=== PATIENT | male | born 1950 | race Caucasian/White ===

== ENCOUNTER 2018-06-30 13:10 | Inpatient (IN) ==
--- NOTE | 2018-06-30 13:48 | Diag Imaging Result Doc PS360 ---
EXAM: CHEST-PORTABLE HISTORY: SOB TECHNIQUE: Chest single view COMPARISON: 05/04/2018 FINDINGS: The lungs are well expanded. The heart is not enlarged. Mild vascular distention. There are no infiltrates. No effusion identified. IMPRESSION: Mild pulmonary edema Electronically signed by Jostin Santos 06/30/2018 1:46 PM
[2018-06-30 14:54] LABS: URINE SOURCE CATH
[2018-06-30] MEDS ORDERED: DILAUDID IV ONE (14:57)
[2018-06-30 14:59] LABS: BASO# 0.03 X1000 (0.0-0.2); BASO% 0.2 % (0.0-0.8); HEMOGLOBIN 11.6 g/dL (14.0-18.0); IMM GRAN# 0.08 X1000 (0.0-0.04); IMM GRAN% 0.6 % (0.0-0.5); LYMPH# 1.72 X1000 (1.2-3.4); MCH 28.3 PG (27-31); MCHC 31.4 g/dL (33-37); MCV 90.2 FL (81-99); MONO# 0.87 X1000 (0.11-0.59); MONO% 6.1 % (1.7-9.3); MPV 10.1 FL (7.4-10.4); NEUT# 11.67 X1000 (1.4-6.5); NEUT% 81.1 % (42.2-75.2); PLT 400 X1000 (130-400); RDW 17.2 % (11.5-14.5); WBC 14.37 X1000 (4.8-10.8)
--- NOTE | 2018-06-30 15:00 | PROVIDER DOCUMENTATION ---
HPI-General Adult - General Stated Complaint: LEG PAIN Time Seen by Provider: 06/30/18 13:31 Source: patient, family Allergies/Adverse Reactions: Patient Allergies Allergy/AdvReac Type Severity Reaction Status Date / Time morphine AdvReac Unknown Verified 06/30/18 14:42 Home Medications: Home Medication List Medication Instructions Recorded Confirmed Last Taken Type Albuterol Sulfate [Proair Hfa] 8.5 gm IH PRN PRN 11/15/17 06/30/18 06/30/18 09: 00 History Aspirin 81 mg PO DAILY 11/15/17 06/30/18 06/30/18 09:00 History Cyclobenzaprine [Flexeril] 10 mg PO PRN PRN 11/15/17 06/30/18 11/17/17 History Duloxetine [Cymbalta] 60 mg PO BID 11/15/17 06/30/18 06/30/18 09:00 History Hydrochlorothiazide 25 mg PO PRN PRN 11/15/17 06/30/18 11/17/17 History Hydrocodone/Acetaminophen [[place] 1 each PO PRN PRN 11/15/17 06/30/18 11/16/17 History 7.5-325 Tablet] Niacin E.r. [Niaspan] 500 mg PO DAILY 11/15/17 06/30/18 06/30/18 09:00 History Omeprazole 20 mg PO DAILY 11/15/17 06/30/18 06/30/18 09:00 History Rosuvastatin Calcium [Crestor] 5 mg PO DAILY 11/15/17 06/30/18 06/30/18 09:00 History Umeclidinium Brm/Vilanterol Tr 1 each IH DAILY 11/15/17 06/30/18 06/30/18 09:00 History [Anoro Ellipta 62.5-25 Mcg INH] Zolpidem [Ambien] 5 mg PO QHS 11/15/17 06/30/18 06/29/18 21:00 History Apixaban [Eliquis] 5 mg PO DAILY 06/30/18 06/30/18 06/30/18 09:00 History - History of Present Illness -Gen Adult Nature of Presenting Problems: 68 YEAR OLD MALE WITH MEDICAL HISTORY SIGNIFICANT FOR PERIPHERAL VASCULAR DISEASE DUE TO SMOKING (NOT DIABETIC) BROUGHT IN TODAY WITH CONCERN OF LEFT LOWER EXTREMITY PAIN. BOTH AND PATIENT ARE POOR HISTORIAN. ACCORDING TO THE , PATIENT WAS PREVIOUSLY ON COUMADIN FOR VTE BUT WAS RECENTLY ADMITTED TO THE [facility] FOR BACK SURGERY AND WHILE IN HOSPITAL, WAS ON HEPARIN DRIP. AFTER DISCHARGED FROM THE HOSPITAL, PATIENT COMPLAINED OF LEFT LOWER EXTREMITY PAIN AND RETURNED BACK TO THE HOSPITAL THE NEXT DAY AND FOUND TO HAVE DVT. ACCORDING THE , PATIENT WAS DISCHARGED TO [facility] AND IS NOT SURE IF PATIENT IS ON ANY ANTICOAGULANT OR NOT. LOOKING AT [facility] PAPER, PATIENT SHOULD BE ON ELIQUIS 5MG BID WITH START DATE OF 06/29/18 Review of Systems - Adult - REVIEW OF SYSTEMS - ADULT Constitutional: denies: chills, fever, fatique Eyes: reports: double vision. denies: discharge, blurred vision Ears, Nose, Mouth & Throat: reports: no symptoms reported Cardiovascular: reports: no symptoms reported Respiratory: reports: shortness of breath Gastrointestinal: reports: no symptoms reported Genitourinary: reports: no symptoms reported Musculoskeletal: reports: other (LOWER LOWER EXTREMITY PAIN) Integumentary: reports: no symptoms reported Neurological: reports: no symptoms reported Psychiatric: reports: no symptoms reported Endocrine: reports: no symptoms reported Hematologic/Lymphatic: reports: no symptoms reported Allergic/Immunologic: reports: no symptoms reported Past History - Adult - PAST MEDICAL HISTORY-ADULT Review of Records: reports: Old Records Reviewed Physical Exam-General - PHYSICAL EXAM-ADULT Initial Vital Signs Reviewed: Yes - CONSTITUTIONAL General Appearance: appears well, alert, mild distress - EYES Eyes: PERRL/EOMI - HEAD, EARS, NOSE, MOUTH & THROAT HENMT: normocephalic/atraumatic, moist mucous membranes - NECK Neck: non-tender, full range of motion - RESPIRATORY Respiratory: chest non-tender, lungs clear, no pleuratic chest pain, no respiratory distress, no accessory muscle use, decreased breath sounds - CARDIOVASCULAR Cardiovascular: normal peripheral pulses, regular rate, rhythm, no edema - GASTROINTESTINAL (ABDOMEN) Abdominal Exam: normal bowel sounds, non tender, soft - LYMPHATIC Lymphatic: no adenopathy - MUSCULOSKELETAL Back Exam: normal inspection Extremity: swelling (LEFT LOWER EXTREMITY SWELLING AND COLD TO TOUCH.), other - SKIN Integumentary: normal color, normal turgor, other (PATIENT HAVE AN ABSCESS LIKE LOOKING AT LEFT GROIN THAT'S ABOUT 8 CM LONG) - NEUROLOGIC Neurologic: grossly normal - PSYCHIATRIC Psych/Mental Status: normal mood/affect, normal thought content, normal thought process, oriented x 3 Progress - PLAN OF CARE/RESULTS Progress/Plan/Lab Results: Laboratory Results - last 24 hr 06/30/18 14:28 Urine Source CATH Orders Category Date Time Status CHEST-PORTABLE [RAD] Stat Exams 06/30/18 13:31 Completed ABSCESS CULTURE INC GRAM STAIN [RM] Stat Lab 06/30/18 14:01 Uncollected AMYLASE [CHEM] Stat Lab 06/30/18 14:28 Received CBC WITH ELECTRONIC DIFF [HEME] Stat Lab 06/30/18 14:28 Results COMPREHENSIVE METABOLIC PANEL [CHEM] Stat Lab 06/30/18 14:28 Received LIPASE [CHEM] Stat Lab 06/30/18 14:28 Received PROTIME WITH INR [COAG] Stat Lab 06/30/18 14:28 Received PTT [COAG] Stat Lab 06/30/18 14:28 Received TROPONIN T Stat Lab 06/30/18 14:28 Received URINALYSIS W/POSS RFLX CULT [URINALYSIS] Stat Lab 06/30/18 14:28 Results pro-bnp [PRO B-NATRIURETIC PEPTIDE] Stat Lab 06/30/18 14:28 Received Hydromorphone [Dilaudid] Med 06/30/18 14:57 Once 1 mg IV NOW ONE Venous U/S Bilateral Legs Stat Ther 06/30/18 14:02 Ordered Result Diagrams: 06/30/18 14:28 06/30/18 14:28 - REASSESSMENT Reassessment #1 Time Reassessed: 15:12 Status: other (SPOKE TO HOSPITLIAST WHO WILL ADMIT PATIENT FOR DVT/PE; WILL TALK TO SURGEON REGARDING TO ABSCESS.) Reassessment #2 Time Reassessed: 15:17 Status: other (UA BACK AND REVEALING UTI. WILL HAVE RN CHANGE THE FORD AND I WILL START PATIENT ON CEFTRIAXONE.) Reassessment #3 Time Reassessed: 15:27 Status: other (SPOKE TO DR. HARRIS AND APPRECIATE HIS ASSITANCE. DR. HARRIS WILL SEE PATIENT DURING HIS HOSPITAL STAY.) - XRAY 1 XRAY Study: Chest ([facility] [address], [address], [place] [address] Department of Imaging Patient: BENEDICTO WHIPPLEADM Date: 06/30/18#: [id number] : 1950DM Status: PRE ERAcct#: [id number] Age /Sex: 68/MRoom/Bed: Loc: ED Ordering Physician: Carmen Sanford MD Family Physician: Reason for Procedure: SOB Signed EXAM: CHEST- PORTABLE HISTORY: SOB TECHNIQUE: Chest single view COMPARISON: 2017 FINDINGS: The lungs are well expanded. The heart is not enlarged. Mild vascular distention. There are no infiltrates. No effusion identified. IMPRESSION: Mild pulmonary edema Electronically signed by Jostin Santos 06/30/2018 1:46 PM 06/30/18 1346 Interpreting Physician: Jostin Santos MD Dictated Date/Time: 06/30/18 1345 cc: Carmen Sanford MD;) Departure - Departure Date of Disposition Decision: 06/30/18 Time of Disposition Decision: 15:27 DIAGNOSIS: Metabolic encephalopathy, Urinary tract infection, Abscess of groin, left, DVT (deep venous thrombosis) Disposition: ADMITTED INPATIENT 09 Certified Medical Emergency: Emergent Condition: Fair Referrals and Follow-Ups: Zbigniew Bartlett [Primary Care Provider] - - Critical Care Note This patient required my direct & personal management of CC.: No Attestation - Physician/ JASIEL Attestation Patient care was provided by Advanced Practice Provider:: No The physician spent face to face time with patient:: Yes Advanced Practice Provider documentation review:: Supervising physician onsite and consulted in the evaluation and care of this patient. The physician did have a face to face encounter with the patient.
[2018-06-30 15:05] LABS: INR 1.44; PROTIME 18.7 Seconds (11.0-16.0)
[2018-06-30 15:06] LABS: PTT 40.6 Seconds (22.3-41.8)
[2018-06-30 15:07] LABS: BILIRUBIN URINE MODERATE (NEGATIVE); BLOOD URINE MODERATE (NEGATIVE); COLOR YELLOW; GLUCOSE URINE NEGATIVE (NEGATIVE); KETONE URINE 40 mg/dL (NEGATIVE); LEUKOCYTES URINE LARGE (NEGATIVE); NITRITE URINE POSITIVE (NEGATIVE); PH URINE 6.5; PROTEIN URINE 100 mg/dL (NEGATIVE); SP GRAVITY URINE 1.027; TURBIDITY URINE TURBID (CLEAR); UR EPITHELIAL CELLS <10 /HPF (<10); URINE BACTERIA 2+ /HPF; URINE RBC TNTC /HPF (<10); URINE WBC TNTC /HPF (<10); UROBILINOGEN URINE 12 mg/dL (NORMAL)
[2018-06-30] MEDS ORDERED: ROCEPHIN 2 GM in NS 50 ML IV ONE (15:15)
[2018-06-30 15:22] LABS: AGAP 15; ALB/GLOB RATIO 0.5; ALBUMIN 1.9 g/dL (3.5-5.0); ALKALINE PHOSPHATASE 286 U/L (32-122); AMYLASE 27 U/L (20-200); BUN 16 mg/dL (8-22); CALCIUM 7.7 mg/dL (8.8-10.2); CHLORIDE 97 mmol/L (98-107); COSMO 287; CREATININE 0.5 mg/dL (0.7-1.2); ESTIMATED GFR > 60; GLUCOSE 105 mg/dL (70-104); GOT 49 U/L (10-34); GPT 39 U/L (10-44); LIPASE 29 U/L (13-60); POTASSIUM 3.6 mmol/L (3.5-5.1); SODIUM 143 mmol/L (136-145); TCO2 31 mmol/L (25-35); TOTAL BILIRUBIN 3.94 mg/dL (0.20-1.00); TOTAL PROTEIN 5.4 g/dL (6.3-8.3)
[2018-06-30 15:42] LABS: URINE CASTS NONE SEEN; URINE CRYSTALS NONE SEEN; URINE YEAST NONE SEEN
[2018-06-30] MEDS ORDERED: ZOSYN 3.375 GM in NS 50 ML IV ONE (15:44)
[2018-06-30] MEDS ORDERED: VANCOMYCIN IV PER PHARMACY MISC SCH (15:45)
[2018-06-30 15:48] LABS: ALLEN TEST YES; BE 8.2 mmoll (-3.0-3.0); BLOOD TYPE ARTERIAL; HCO3-(ACT) 31.1 mmoll (20.0-26.0); METHB 1.1 % (0.0-1.5); O2(CT) 13.2 mL/dL (15.0-23.0); PCO2(98.6) 40 mmHg (35-45); PO2(98.6) 51 mmHg (60-100); SAMPLE BLOOD; SAO2 91.3 % (95.0-100.0); THB 10.7 g/dL (11.5-17.4); pH(98.6) 7.51 (7.35-7.45)
[2018-06-30 15:49] LABS: MODALITY CANNULA
[2018-06-30 15:50] LABS: O2HB 87.4 % (95.0-99.0)
[2018-06-30] MEDS ORDERED: VENTOLIN HFA INH PRN (15:51)
[2018-06-30] MEDS ORDERED: NORCO-7.5 PO PRN ×2 (15:51→17:34)
[2018-06-30] MEDS: PROTONIX IV SCH (16:00)
[2018-06-30] MEDS ORDERED: LASIX IV SCH (17:30)
[2018-06-30] MEDS ORDERED: MORPHINE IV PRN (17:30)
--- NOTE | 2018-06-30 17:46 | ED EKG INTERP ---
This chart was entered by Rani King Scribe, acting as scribe for Romulo Cervantes MD. EKG Interpretation - EKG Time of EKG reading by physician:: 16:21 EKG Read and Signed by:: Romulo Cervantes EKG Interpretation (*Must complete 3 of following elements*): Abnormal Rate: 101 Rhythm: Sinus tachycardia w/premature atrial complexes Comments: nonspecific ST abnormality Attestation - Physician/ JASIEL Attestation Patient care was provided by Advanced Practice Provider:: Yes Advanced Practice Provider documentation review:: The Mid-level provider documentation, treatment plan and medical decision making was reviewed by the physician who agrees with all treatment and medical decision making by the MLP. The physician spent face to face time with patient:: No Advanced Practice Provider documentation review:: Supervising physician onsite and consulted in the evaluation and care of this patient. The physician did not have a face to face encounter with the patient. This chart was documented by the indicated scribe, (Rani King Scribe) and accurately reflects the services I performed and decisions made by me, Romulo Cervantes MD, as attested by the provider's signature.
--- NOTE | 2018-06-30 18:22 | Diag Imaging Result Doc PS360 ---
EXAM: CT ABD/PELVIS W/PO AND IV CON HISTORY: inguinal abscess TECHNIQUE: CT abdomen and pelvis with intravenous contrast COMPARISON: None. FINDINGS: There are small pleural effusions measuring under 2 cm posteriorly and inferiorly in the midline with basilar atelectasis and/or infiltrates. There are several stones within the gallbladder. No inflammation about the gallbladder. There is a 3.5 cm nonspecific hypodense lesion superiorly in the right lobe of the liver. There is an additional 9 mm hypoechoic nodule inferiorly in the right lobe. Normal spleen, pancreas, and adrenal glands. No solid renal mass. There is scarring to the right kidney. Mild decreased enhancement in the mid left kidney with no distinct lesion. No aortic aneurysm. There is an inferior vena caval filter. No bowel obstruction. Mixed density areas in the left iliopsoas region extending into the inguinal region and upper thigh. No air within this area. Poorly defined periphery. This extends to the skin surface in the iliac region. The left external iliac artery is occluded. There is flow in the distal femoral and proximal superficial femoral arteries. There is a Sutherland catheter in the urinary bladder. The prostate is not enlarged. Prominent seminal vesicles. The postsurgical changes in the lower lumbar spine. IMPRESSION: 1.Large mixed density area in the upper left thigh extending into the iliopsoas region with an appearance more typical of a hematoma. 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 There is an inferior vena caval filter. 3.Nonspecific hypodense lesions within the liver 4.Cholelithiasis 5.Nonspecific poorly enhancing area in the mid left kidney as well as scarring to the right kidney 6.Small pleural effusions with basilar atelectasis and/or infiltrates This exam was performed using automated exposure control, adjustment of mA or kV according to patient size, and/or use of iterative reconstruction technique. Electronically signed by Jostin Santos 06/30/2018 6:19 PM
--- NOTE | 2018-06-30 18:29 | HISTORY AND PHYSICAL ---
DATE OF CONSULTATION: 06/30/2018 CHIEF COMPLAINT: Was shortness of breath and left groin pain. Briefly this is 68-year-old male. He was seen by ER physician today. He has recently been discharged from [facility] after a protracted admission for DVT, although it is unclear how long he has been out, but again since it was about 3 or 4 days he has had it about 3 days and it is unclear if he had it at the time of discharge from [facility]. They are not very good historians but it sounds like within the last couple weeks he had back surgery electively, that was fine then he came back in for a DVT of his left leg. He had an IVC filter placed, I am unclear a little bit why that was the case but then describes that he had a hematoma either in his left lower quadrant or associated with his hip and I think could not be anticoagulated. His anticoagulate was due to be started on the . It does sound like he also had a PE. In any case, he has a left groin abscess which has been there for 3 days. Unclear where the site of IVC filter placement was. I do not have those records. The family is very adamant about not returning to [place] despite being there for the last several weeks and getting most their care there. Dr. Bartlett has operated on him and did a carotid endarterectomy earlier this year in November. He has seen Dr. Pace in the past who did a femoral-popliteal bypass and had a hematoma that I think had to be evacuated but that was in 2007. In any case, I discussed with the family that we need to get further imaging and evaluate his graft is infected before we decide whether to keep him here and that is also at discretion of Dr. Foley and Dr. Bartlett as they were not involved with this vascular procedure that has been done recently. It is unclear whether this was related to the IVC filter or not or if this just happened spontaneously. In any case we will get Dr. Foley to evaluate and CT scan of his abdomen and pelvis and evaluate the deepness of infection and patency of his grafts. Fortunately, his creatinine is intact. PAST MEDICAL HISTORY: 1. CAD. 2. Hyperlipidemia. He is not a diabetic. I think his initial indication for anticoagulant was either vascular disease or atrial fibrillation. PAST SURGICAL HISTORY: 1. He has IVC filter. 2. Appendectomy. 3. Tonsillectomy. 4. Carotid endarterectomy. SOCIAL HISTORY: Heavy smoker 3 to 4 packs for at least 25 years. No alcohol. ALLERGIES: To morphine. FAMILY HISTORY: Significant for CAD, other vascular disease . MEDICATIONS: He is taking Ambien, ProAir, Eliquis although it is listed as 5 daily and it was started yesterday, aspirin 81 daily, Flexeril, Cymbalta 60 b.i.d., hydrochlorothiazide p.r.n., Percocet p.r.n., niacin 500 daily, omeprazole 20 daily, Crestor 5 daily and Anoro Ellipta. REVIEW OF SYSTEMS: Otherwise negative times a 10 point review of systems. PHYSICAL EXAMINATION: Vital Signs: Blood pressure is 141/71, heart rate 101, respiratory 24. He is about 93-94% on 3 or 4 L. General: Well-developed male appears in mild distress secondary to pain. HEENT: Pupils equal, round, reactive to light. Extraocular movements were intact. Moist mucous membranes. Neck: Supple. Cardiovascular: Regular rate and rhythm. Pulmonary: Bilateral breath sounds clear to auscultation with some wheezing and rales. GI : Was soft, nontender, nondistended. Bowel sounds are positive. Extremities: No clubbing or cyanosis. Lymphatic: No peripheral edema. Neurological: Nonfocal. Skin: He had a large I would say 3 to 4 ovoid abscess with active purulent drainage and some serosanguineous fluid removal, there were areas that were almost dark blue, there is a vascular component to it. His left leg is edematous at least 2 to 3+ edema from ankle all the way up to thigh and his skin was jaundiced and he is jaundiced. 1. 68-year-old male with a left groin abscess which is felt to be associated with either primary furunculosis or possibly it could be a endovascular infection related to either graft infection or recent venous puncture and inferior vena cava filter placement. He will be placed on broad-spectrum antibiotics vancomycin and Zosyn until we get more information, which will be CT scan to better evaluate for endovascular infection. If there is not endovascular infection this can be handled here. If there is he will need vascular surgery evaluation and we may not be able to wait till Monday. Dr. Foley will evaluate the patient. 2. Hypoxia may be related to early sepsis possibly versus pulmonary embolism. We will anticoagulate as soon as we know there is not significant infection probably with heparin until we know a little bit better. He has got a large hematoma as well. 3. Elevated liver enzymes, unclear etiology if that is related to medication or otherwise, not really on anything besides Crestor that would be potentially hepatotoxic. We will avoid any hepatotoxic drugs in the meantime. 4. Pulmonary edema. We will order some diuretics and follow. DISPOSITION: Pending his clinical status. Based on CT scan evaluation, patient has a hematoma which he developed while being anticoagulating after a DVT he developed after spinal surgery. He subsequently has been placed on eliquis starting yesterday, he has a large abscess in his inguinal which is associated with iliopsoas hematoma which is now felt to be infected unclear if it is associated with any endovascular graft. Dr Foley has evaluated the patient and feels like he will need IV antibiotics and I/D when clinically more stable. He is also developing progressive respiratory failure, which is unclear as far as etiology. may be developing, ALI or ARDS due to infection, will check echo to evaluate for systolic heart failure, presumably as he has an ivc filter it would be unlikely to be related to PE. We will get pulmonary consult; and continue diuresis; hold anticoagulation as he has IVC filter; as has a large hematoma. cc: MD DAVID Horne
[2018-06-30] MEDS ORDERED: DUONEB (A & A) INH PRN (18:45)
[2018-06-30 19:14] LABS: ALLEN TEST YES; BE 9.1 mmoll (-3.0-3.0); BLOOD TYPE ARTERIAL; HCO3-(ACT) 31.9 mmoll (20.0-26.0); METHB 1.2 % (0.0-1.5); O2(CT) 14.5 mL/dL (15.0-23.0); O2HB 92.6 % (95.0-99.0); PCO2(98.6) 44 mmHg (35-45); PO2(98.6) 70 mmHg (60-100); SAMPLE BLOOD; SAO2 96.6 % (95.0-100.0); THB 11.1 g/dL (11.5-17.4); pH(98.6) 7.49 (7.35-7.45)
[2018-06-30 19:15] LABS: MODALITY VENTIMASK
--- NOTE | 2018-06-30 19:25 | GENERAL SURGERY CONSULTATION ---
DATE: 06/30/2018 REASON FOR CONSULTATION: Left groin abscess. HISTORY OF PRESENT ILLNESS: This is a 68-year-old male known to my partner, Dr. Bartlett for peripheral arterial disease, carotid artery disease and previous aortobifemoral bypass with known occlusion of the left iliac graft. He had been planning elective intervention to revascularize his left lower extremity but elected to pursue some type of back surgery first. This occurred in his lower back in late May in [facility]. He was discharged home a few days after surgery and then returned to the hospital a day or 2 later with significant left leg swelling and pain. He was found to have extensive DVT. He was started on blood thinners. He also developed a hematoma of the left iliopsoas and paraspinal muscles. He underwent right IVC filter placement. He was discharged recently to [facility] on Eliquis. I think he had been there about 2 to 3 days this week and then started having significant left groin pain. It was red and swollen and warm and then today it started draining foul drainage and he then presented to our emergency room. PAST MEDICAL HISTORY: Peripheral arterial disease, occluded left aortofemoral graft, chronic back pain, hyperlipidemia, hypertension, carotid artery disease. PAST SURGICAL HISTORY: 1. Aortobifemoral graft. 2. Repair of aortobifemoral graft. 3. Thrombectomy of aortobifemoral graft. 4. Left carotid endarterectomy. 5. Lower back surgery. 6. IVC filter placement. 7. Bilateral cataract surgery. 8. Tonsillectomy. 9. Appendectomy. ALLERGIES: Morphine. HOME MEDICATIONS: Eliquis taken this morning, Ambien, Crestor, omeprazole, Niaspan, Ellipta, [place], hydrochlorothiazide, Cymbalta, Flexeril, aspirin, ProAir. SOCIAL HISTORY: He is a smoker. Denies alcohol use. FAMILY HISTORY: Positive for stroke, hypertension, breast cancer, heart disease, hypercholesterolemia, colon cancer, alcohol abuse, arthritis, and depression. REVIEW OF SYSTEMS: Ten systems reviewed and negative except as noted above. PHYSICAL EXAMINATION: Vital Signs: Temperature not recorded, pulse 101, respirations 24, blood pressure 141/71, O2 saturation 91%. General: He is an elderly male who is ill-appearing but nontoxic. He looks his stated age. HEENT: Normocephalic, atraumatic. Extraocular muscles intact. Pupils equal, round, reactive to light. Sclerae anicteric. Mucous membranes are dry. Neck: Supple. No thyromegaly. CV: Tachycardic and regular. Respiratory: Bilateral equal breath sounds. No work of breathing. GI: Soft, nontender, nondistended. No organomegaly or mass. Extremities: Both lower legs and feet are cool to touch, but not obviously acutely ischemic. I do not palpate pedal pulses. His left leg has 2 to 3+ pitting edema throughout. Skin: The left groin has a large area of swelling, warmth and redness with open foul drainage that is bloody and purulent. LABORATORY: White cell count 14,000, hemoglobin 11.6, hematocrit 37, platelet count 400,000. INR 1.44, PTT 40. Electrolytes reviewed and notable for total bilirubin 3.9, alkaline phosphatase 286, albumin 1.9, amylase 27, lipase 29. Urinalysis positive for nitrite, blood, leukocytes and bacteria. IMAGING: CT of abdomen and pelvis was done today showing a large mixed density fluid collection in the left upper thigh up to the iliopsoas and paraspinal muscles. It appears to be a hematoma. 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 There is also occlusion of left iliac vein. There is an inferior vena cava filter. There are nonspecific hypodense lesions within the liver. There are gallstones. The mid left kidney is poorly enhancing. There are small pleural effusions and basilar atelectasis or infiltrates. Comparison study of CT on 06/17/2018 also showed this large mixed density fluid collection which was similar in appearance. ASSESSMENT AND PLAN: A 68-year-old male with what appears to be an infected left iliopsoas hematoma also extending up into the groin and now with spontaneous drainage. The etiology is unclear, but he may have had a spontaneous hematoma after being put on blood thinners for deep vein thrombosis that has become secondarily infected. There is some concern for the graft as the hematoma is abutting and surrounding the external iliac limb of the graft. At this point, the best thing to do is put him on vancomycin and Zosyn, follow the culture results and allow the Eliquis to exit his system and we would be planning a drainage of this hematoma in the OR in a couple of days. I will talk to Dr. Bartlett at that time and we will assess the graft at that time. cc: Chepe Foley MD
[2018-06-30] MEDS ORDERED: CYMBALTA PO SCH (21:00)
[2018-06-30] MEDS: ZOSYN 3.375 GM in NS 50 ML IV SCH (21:02)
[2018-06-30] MEDS ORDERED: TYLENOL PO PRN ×2 (21:33→21:47)
[2018-06-30] MEDS ORDERED: SALINE LOCK IV FLUID XX ONE ×2 (21:34→21:44)
[2018-06-30] MEDS: CYMBALTA PO SCH (21:50)
[2018-06-30] MEDS: DILAUDID IV PRN (21:50)
[2018-06-30] MEDS: VANCOMYCIN 2 GM in NS 500 ML IV SCH (21:51)
[2018-06-30] MEDS ORDERED: DUONEB (A & A) INH SCH ×2 (22:00→23:30)
[2018-06-30] MEDS: DUONEB (A & A) INH SCH (22:31)
[2018-07-01] MEDS: DUONEB (A & A) INH SCH ×6 (03:31→23:47)
[2018-07-01] MEDS: ZOSYN 3.375 GM in NS 50 ML IV SCH ×3 (04:42→15:35)
[2018-07-01] MEDS: DILAUDID IV PRN ×5 (04:43→21:08)
[2018-07-01] MEDS ORDERED: LASIX IV ONE (05:30)
[2018-07-01 06:38] LABS: BASO# 0.03 X1000 (0.0-0.2); BASO% 0.3 % (0.0-0.8); EOS# 0.05 X1000 (0.0-0.7); EOS% 0.5 % (0.0-10.0); HEMATOCRIT 32.6 % (42.0-52.0); HEMOGLOBIN 10.2 g/dL (14.0-18.0); IMM GRAN# 0.08 X1000 (0.0-0.04); IMM GRAN% 0.8 % (0.0-0.5); LYMPH# 1.84 X1000 (1.2-3.4); LYMPH% 18.3 % (20.5-51.1); MCH 28.1 PG (27-31); MCHC 31.3 g/dL (33-37); MCV 89.8 FL (81-99); MONO# 0.79 X1000 (0.11-0.59); MONO% 7.8 % (1.7-9.3); MPV 10.1 FL (7.4-10.4); NEUT# 7.28 X1000 (1.4-6.5); NEUT% 72.3 % (42.2-75.2); PLT 375 X1000 (130-400); RBC 3.63 XMIL (4.7-6.1); RDW 17.3 % (11.5-14.5); WBC 10.07 X1000 (4.8-10.8)
[2018-07-01 07:19] LABS: AGAP 16; ALB/GLOB RATIO 0.4; ALBUMIN 1.7 g/dL (3.5-5.0); ALKALINE PHOSPHATASE 259 U/L (32-122); BUN 11 mg/dL (8-22); CALCIUM 7.7 mg/dL (8.8-10.2); CHLORIDE 96 mmol/L (98-107); COSMO 283; CREATININE 0.4 mg/dL (0.7-1.2); ESTIMATED GFR > 60; GLUCOSE 81 mg/dL (70-104); GOT 38 U/L (10-34); GPT 29 U/L (10-44); POTASSIUM 2.7 mmol/L (3.5-5.1); SODIUM 143 mmol/L (136-145); TCO2 31 mmol/L (25-35); TOTAL BILIRUBIN 2.73 mg/dL (0.20-1.00); TOTAL PROTEIN 5.5 g/dL (6.3-8.3)
[2018-07-01] MEDS ORDERED: KLOR-CON PO ONE (07:22)
--- NOTE | 2018-07-01 08:06 | Diag Imaging Result Doc PS360 ---
EXAM: CHEST-PORTABLE - 07/01/2018 HISTORY: SOB TECHNIQUE: Portable chest COMPARISON: 06/30/2018 FINDINGS: There are increased opacities at the bilateral lung bases compared to prior, most prominent on the right. This may relate to infiltrates and/or atelectasis. There is no pleural effusion or pneumothorax identified. Heart size is normal. IMPRESSION: Bibasilar infiltrates/atelectasis, most prominent on the right. Electronically signed by Riley Sweet 07/01/2018 8:03 AM
[2018-07-01] MEDS: CYMBALTA PO SCH ×2 (08:20→21:07)
--- NOTE | 2018-07-01 08:56 | PROGRESS NOTE ---
DATE: 07/01/2018 SUBJECTIVE: This patient states that he is feeling about the same. He is still complaining of some shortness of breath and left groin pain. He has a large round/ovoid abscess that measures about 4 cm of diameter with active purulent drainage. Also we can notice some serosanguineous fluid draining through that area that is covered with a new dressing. There are some red areas and also some dark red areas and some scattered dark blue areas. He looks a little bit pale/jaundiced. Coarse breath coarse breath sounds bilaterally and his left leg is swollen, 2 to 3+ pitting edema. Right leg without any kind of edema or swelling. OBJECTIVE: Vital Signs: Temperature 98.8, pulse 88, respiratory rate 20, blood pressure 129/60. Oxygen saturation 90 on a Venturi mask. HEENT: Head normocephalic. No trauma. PERRLA. He seems to be jaundiced. Neck: Supple. No JVD. No masses. Central trachea. Chest: Coarse breath sounds bilaterally, good air entry. Abdomen: Soft. Nontender, nondistended. No hepatosplenomegaly. Genitourinary: He has a large ovoid/round lesion that is draining pus and serosanguineous discharge spontaneously. Some areas are dark red and dark blue. We will place a new dressing on that area. Extremities: 2 to 3+ left lower extremity edema. No clubbing. No cyanosis. Right lower extremity without edema. No clubbing. No cyanosis. Neurological: The patient is alert and oriented x3. No focal deficits. LABORATORY: WBC 10, hemoglobin 10.2, hematocrit 32.6, platelet 375,000. Sodium 143, potassium 2.7, chloride 96, bicarbonate 31, BUN 11, creatinine 0.4, glucose 81, calcium 7.7, AST 38, ALT 29, alkaline phosphatase 259, albumin 1.7. His urine is positive for nitrates, too numerous to count leukocyte and 2+ bacteria. ASSESSMENT AND PLAN: 1. Likely infected left iliopsoas hematoma extending up into the groin, draining spontaneously. We will continue with antibiotics, broad-spectrum. Surgery Department following this patient closely. Hopefully, this patient will go to the OR tomorrow for incision and drainage and evaluation of the graft. 2. Hypoxemic respiratory failure. I am not quite sure if this patient has a history of pulmonary embolism, but an IVC filter has been placed recently apparently. He is still requiring high amount of oxygen. He is on a Venturi mask right now. I just asked for a new x-ray to compare the new one with the previous x-ray done yesterday. 3. Elevated liver enzymes. I am not quite sure about the etiology. AST decreased from 49 to 38, and alkaline phosphatase from 286 to 259. ALT within normal limits. We are avoiding nephrotoxic medications. We stopped the Crestor already. 4. History of coronary artery disease. He is not complaining of chest pain at this moment. Troponin upon admission was negative. 5. Hyperlipidemia. We will hold the Crestor for now due to elevated LFTs. 6. Pulmonary edema. He received some doses of Lasix yesterday. I asked for a new x-ray today. Kidney function is normal. 7. Hypokalemia. I will replace the potassium. 8. Urinalysis showed bacteria, WBC too numerous to count and nitrates. He has been placed already on antibiotics. Probably he has a UTI as well. We will monitor. CRITICAL CARE TIME: 40 minutes. cc: Isaías Martinez MD
[2018-07-01] MEDS ORDERED: ROSUVASTATIN CALCIUM 5 MG PO SCH (09:00)
[2018-07-01] MEDS: ANORO ELLIPTA 62.5-25 MCG INH INH SCH (09:35)
[2018-07-01] MEDS: NIASPAN PO SCH (09:35)
--- NOTE | 2018-07-01 13:17 | GENERAL SURGERY PROGRESS NOTE ---
DATE: 07/01/2018 SUBJECTIVE: The patient says he feels about the same as last night. He denies shortness of breath. OBJECTIVE: Vital signs: He is a afebrile. Vital signs are stable except for an oxygen level 87 to 93%. Urine output 2,700 mL. General: He is alert and oriented x4. No acute distress. CV: Regular rate and rhythm. Respiratory: Bilateral breath sounds. No increased work of breathing. GI: Soft, nontender, nondistended. Extremities: His left groin has a fluctuant area with foul drainage and necrotic skin. LABORATORY: White blood cell count 10, hemoglobin 10, hematocrit 32. Potassium 2.7, albumin 1.7. IMAGING: Chest x-ray shows increasing basilar infiltrates. 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 At this point, he needs continued supportive care with broad-spectrum antibiotics. We should institute nutritional support and make him NPO after midnight for anticipated hematoma and abscess drainage tomorrow. Hold anticoagulants at this point until after surgery and as directed by Dr. Bartlett. He does have an IVC filter in place. cc: Chepe Foley MD
--- NOTE | 2018-07-01 14:11 | PULMONOLOGY CONSULTATION ---
DATE: 07/01/2018 REQUESTING PHYSICIAN: Bernard Pisano MD REASON FOR CONSULTATION: Respiratory failure. HISTORY OF PRESENT ILLNESS: Mr. Mercado is a 68-year-old white male with a greater than 45 pack year history for tobacco, continued tobacco use, with peripheral vascular disease, history of deep vein thrombosis, history of recent IVC filter placement by report who underwent a back surgery in [place] last month. These records are not available for review, and completion of the data base is pending review of records from [facility]. The patient, by report, had back surgery and was discharged and subsequently developed a deep vein thrombosis and IVC filter was placed. The patient was at the [place] [facility] and was brought to the emergency room with left leg pain. The patient had a large area of necrosis with drainage of pus/necrotic fat from the left groin. CT scan of the abdomen and pelvis was performed which revealed bibasilar posterior infiltrates, occlusion of the left iliac vein and external iliac artery, IVC filter, cholelithiasis, small effusions, and a large mixed density in the left thigh extending into the psoas region. Arterial blood gas on nasal cannula has been performed which reveals pH 7.51, pCO2 40, pO2 51. The patient is being evaluated by general surgery. PAST MEDICAL HISTORY: 1. Extensive tobacco history. No pulmonary function studies available for review. 2. Coronary artery disease. 3. Dyslipidemia. 4. Peripheral vascular disease status post aortobifemoral bypass with occlusion of the left iliac graft, status post IVC filter placement, status post tonsillectomy, status post left carotid endarterectomy, status post appendectomy. SOCIAL HISTORY: The patient is and lives with his . Ongoing tobacco use. No alcohol listed. FAMILY HISTORY: Positive for coronary artery disease. REVIEW OF SYSTEMS: Limited. The patient is a very poor historian. PHYSICAL EXAMINATION: General: Reveals a chronically ill-appearing male resting comfortably on Venturi face mask. Vital Signs: Blood pressure 113/61, heart rate 91, respiratory rate 24, oxygen saturation 97%. He has been afebrile for the last 24 hours. HEENT: Pupils are equal and reactive. Oropharynx is clear. Neck: Supple. Chest: Reveals prolonged expiratory phase with crackles in both lung bases. Cardiac: S1 and S2. Abdomen: Soft without hepatosplenomegaly. Extremities: Cool to the touch. Left groin reveals an oval shaped area in the left groin which has areas of necrosis, fluctuance, and drainage of purulent material versus necrotic fat. White blood count 14.37, hemoglobin 11.6, platelet count 400,000. Chemistry: Sodium 143, potassium 3.7, chloride 96, bicarbonate 31, BUN 11, creatinine 0.4, albumin 1.7. IMPRESSION: A 68-year-old with acute hypoxemic respiratory failure, bibasilar pneumonia, ongoing tobacco use, small pleural effusions, probable abscess in the left groin which will likely require surgical intervention. RECOMMENDATIONS: 1. Continue broad spectrum covering both gram negative and gram positive organisms as you are doing. This should cover both the pneumonia and the left groin. 2. Smoking cessation will be discussed as the patient improves. 3. Additional evaluation and treatment pending surgical management of the left groin. 4. Recommend nutrition consult given the severe protein calorie malnutrition. cc: Basilio Bloom MD
[2018-07-01] MEDS: SODIUM CHLORIDE 0.9% INJ SCH (15:35)
[2018-07-01] MEDS: PROTONIX IV SCH (15:35)
[2018-07-01] MEDS: VANCOMYCIN 2 GM in NS 500 ML IV SCH (21:07)
[2018-07-02] MEDS: ZOSYN 3.375 GM in NS 50 ML IV SCH ×5 (00:26→21:09)
[2018-07-02] MEDS: DILAUDID IV PRN ×5 (01:26→20:29)
[2018-07-02] MEDS: DUONEB (A & A) INH SCH ×6 (03:45→23:16)
[2018-07-02 04:24] LABS: BASO# 0.03 X1000 (0.0-0.2); BASO% 0.3 % (0.0-0.8); EOS% 1.1 % (0.0-10.0); HEMATOCRIT 32.3 % (42.0-52.0); HEMOGLOBIN 9.9 g/dL (14.0-18.0); IMM GRAN# 0.07 X1000 (0.0-0.04); IMM GRAN% 0.8 % (0.0-0.5); LYMPH# 2.01 X1000 (1.2-3.4); MCH 27.9 PG (27-31); MCHC 30.7 g/dL (33-37); MONO# 0.59 X1000 (0.11-0.59); MONO% 6.7 % (1.7-9.3); MPV 9.6 FL (7.4-10.4); NEUT# 5.95 X1000 (1.4-6.5); NEUT% 68.1 % (42.2-75.2); PLT 374 X1000 (130-400); RBC 3.55 XMIL (4.7-6.1); RDW 17.2 % (11.5-14.5); WBC 8.75 X1000 (4.8-10.8)
[2018-07-02 04:26] LABS: ALLEN TEST YES; BE 9.9 mmoll (-3.0-3.0); BLOOD TYPE ARTERIAL; HCO3-(ACT) 32.5 mmoll (20.0-26.0); METHB 0.8 % (0.0-1.5); O2(CT) 13.8 mL/dL (15.0-23.0); PCO2(98.6) 48 mmHg (35-45); PO2(98.6) 52 mmHg (60-100); SAMPLE BLOOD; SAO2 91.2 % (95.0-100.0); THB 11.1 g/dL (11.5-17.4); pH(98.6) 7.47 (7.35-7.45)
[2018-07-02 04:29] LABS: MODALITY CANNULA; O2HB 88.4 % (95.0-99.0)
[2018-07-02 04:42] LABS: AGAP 10; ALB/GLOB RATIO 0.4; ALBUMIN 1.5 g/dL (3.5-5.0); ALKALINE PHOSPHATASE 254 U/L (32-122); BUN 10 mg/dL (8-22); CALCIUM 8.2 mg/dL (8.8-10.2); CHLORIDE 100 mmol/L (98-107); COSMO 288; CREATININE 0.4 mg/dL (0.7-1.2); ESTIMATED GFR > 60; GLUCOSE 100 mg/dL (70-104); GOT 35 U/L (10-34); GPT 27 U/L (10-44); POTASSIUM 3.7 mmol/L (3.5-5.1); SODIUM 145 mmol/L (136-145); TCO2 35 mmol/L (25-35); TOTAL BILIRUBIN 2.48 mg/dL (0.20-1.00); TOTAL PROTEIN 5.4 g/dL (6.3-8.3)
--- NOTE | 2018-07-02 06:32 | Diag Imaging Result Doc PS360 ---
EXAM: CHEST-PORTABLE HISTORY: dyspnea TECHNIQUE: Portable chest single view COMPARISON: 07/01/2018 FINDINGS: Poor inspiratory effort. Worsening basilar atelectasis and infiltrates. No cardiomegaly. Mild vascular distention. There are small pleural effusions. IMPRESSION: Interval worsening. Electronically signed by Jostin Santos 07/02/2018 6:29 AM
[2018-07-02] MEDS ORDERED: LASIX IV ONE (07:14)
--- NOTE | 2018-07-02 07:44 | EKG Report ---
Test Performed on : 06/30/2018 4:18:27 PM Test Reason : CP Blood Pressure : / mmHG Vent. Rate : 101 BPM Atrial Rate : 101 BPM P-R Int : 164 ms QRS Dur : 092 ms QT Int : 340 ms P-R-T Axes : 044 013 042 degrees QTc Int : 440 ms Sinus tachycardia. with premature atrial complexes. Nonspecific ST abnormality Abnormal ECG When compared with ECG of 05-JUL-2010 10:29, premature atrial complexes. are now present Minimal criteria for Anterior infarct are no longer present Unconfirmed Result
--- NOTE | 2018-07-02 07:46 | PROGRESS NOTE ---
DATE: 07/02/2018 SUBJECTIVE: This patient states that he is feeling better. The shortness of breath has been improving. Hypokalemia resolved. No leukocytosis. He is a heavy smoker. He is still looking a little bit pale/jaundice. He still has some coarse breath sounds bilaterally. But his left leg is less swollen. The left groin abscess is covered with a clean dressing. OBJECTIVE: Vital Signs: Temperature 98.9 degrees, pulse 83, respiratory rate 21, blood pressure 148/65, oxygen saturation 96 on 6 L of nasal cannula. HEENT: Head normocephalic. No trauma. PERRLA. He seems to be jaundiced. Neck: Supple. No JVD. Central trachea. Chest: Coarse breath sounds bilateral. Good air entry. Abdomen: Soft, nontender, and nondistended. No hepatosplenomegaly. Genitourinary: He has a large ovoid/brown lesion that is draining some serosanguineous/pus discharge spontaneously. Some areas are dark red and dark blue. I did not open the lesion today. That is what I saw yesterday. There is a new dressing in that area and hopefully, he will go today for surgery. Extremities: 1+ left lower extremity edema, no clubbing. No cyanosis. Right lower extremity without abnormality. Neurological: The patient is alert and oriented x3. No focal deficits. LABORATORY: WBC 8.7, hemoglobin 9.9, hematocrit 32.3, platelets 374,000. Sodium 145, potassium 3.7, chloride 100, bicarbonate 35, BUN 10, creatinine 0.4, glucose 100, calcium 8.2. Total bilirubin 2.4, AST 35, ALT 27, alkaline phosphatase 254. Albumin 1.5. ASSESSMENT AND PLAN: 1. Likely infected left iliopsoas hematoma extending up to the groin, draining spontaneously. Continue with antibiotics, broad spectrum. Surgery Department following this patient and hopefully, they will go to the OR today for I and D, and evaluation of the graft. 2. Hypoxemic respiratory failure. I am not quite sure if this patient has a history of pulmonary embolism, but an inferior vena cava filter has been placed recently. He is requiring still high amount of oxygen. Continue with breathing treatment. X-ray today showed worsening bibasilar atelectasis and infiltrates. No cardiomegaly. Mild vascular distention, and there are small pleural effusion. 3. Elevated liver enzymes. I am not quite sure about the etiology. AST, alkaline phosphatase, and bilirubin trending down. ALT is normal within normal limits. We will avoid hepatotoxic medications. We stopped her Crestor already. 4. History of coronary artery disease. He has no complaint of chest pain at this moment. Negative troponin. 5. Hypokalemia, resolved. 6. Pulmonary edema. Since it looks like this is getting worse, I will go ahead and order at x1 dose of Lasix, and I will monitor. 7. Urinary tract infection with a positive culture that showed gram-negative rods. Continue with antibiotics. 8. Resuscitation status. This patient is full code. CRITICAL CARE TIME: 40 minutes. cc: Isaías Martinez MD
[2018-07-02] MEDS: NIASPAN PO SCH (09:59)
[2018-07-02] MEDS: CYMBALTA PO SCH ×2 (09:59→20:27)
[2018-07-02] MEDS: LASIX IV SCH ×2 (12:24→20:27)
[2018-07-02] MEDS: ALBUMIN 25% IV SCH ×2 (12:24→20:27)
--- NOTE | 2018-07-02 12:46 | PULMONOLOGY PROGRESS NOTE ---
DATE: 07/02/2018 SUBJECTIVE: The patient is awake, alert, and conversant. He is without specific complaints. OBJECTIVE: Vital signs: The patient has been afebrile for the last 24 hours. Blood pressure 137/64, heart rate 92, respiratory rate 19, oxygen saturation 99% on 50% Venturi mask. HEENT: Pupils are equal and reactive. Oropharynx is clear. Neck: Supple. Chest: Reveals crackles in the lung bases with prolonged expiratory phase. Cardiac: S1, S2. Abdomen: Soft, without hepatosplenomegaly. Extremities: Slightly cool to the touch. I was present when Dr. Bartlett evacuated necrotic fat and blood clots from the left groin. LABORATORIES: Chest x-ray reveals slight worsening of bibasilar infiltrates with mild vascular congestion and small effusions. Arterial blood gas: pH 7.47, pCO2 of 48, pO2 of 52. IMPRESSION: A 68-year-old with bibasilar pneumonia, acute hypoxemic respiratory failure, ongoing tobacco use, pleural effusions, abscess in the left groin. RECOMMENDATION: 1. Continue oxygen as needed for hypoxemic respiratory failure. 2. Continue antibiotics which should cover both the pneumonia and the left groin. 3. Smoking cessation. 4. Anticipate surgical intervention with exploration of the left groin tomorrow. cc: Basilio Bloom MD
[2018-07-02] MEDS: SODIUM CHLORIDE 0.9% INJ SCH (15:58)
[2018-07-02] MEDS: PROTONIX IV SCH (15:58)
[2018-07-02] MEDS: ANORO ELLIPTA 62.5-25 MCG INH INH SCH (16:00)
[2018-07-02] MEDS: VANCOMYCIN 2 GM in NS 500 ML IV SCH (21:52)
--- NOTE | 2018-07-03 01:02 | GENERAL SURGERY PROGRESS NOTE ---
DATE: 07/02/2018 Mr. Mercado is afebrile, heart rate is 90, blood pressure 111/42. His groin has an open wound that has old blood that is partially evacuated. We took new cultures. Laboratory data reveals a white count down, hemoglobin 9.9, hematocrit 32. The plan will be to open the wound and evacuate the hematoma completely, look and see the involvement of the graft and then treat the wound appropriately. Told him we could not do anything to his graft until this wound to completely heal. He understands that. His leg is viable and looks pink. cc: Romulo Bartlett MD MTDD
[2018-07-03] MEDS: DILAUDID IV PRN ×4 (02:22→18:34)
[2018-07-03] MEDS: ZOSYN 3.375 GM in NS 50 ML IV SCH ×4 (03:24→20:54)
[2018-07-03] MEDS: DUONEB (A & A) INH SCH ×6 (03:45→23:28)
[2018-07-03 04:47] LABS: BASO# 0.02 X1000 (0.0-0.2); BASO% 0.2 % (0.0-0.8); EOS# 0.07 X1000 (0.0-0.7); EOS% 0.8 % (0.0-10.0); HEMATOCRIT 33.9 % (42.0-52.0); HEMOGLOBIN 10.4 g/dL (14.0-18.0); LYMPH# 1.83 X1000 (1.2-3.4); LYMPH% 21.1 % (20.5-51.1); MCH 28.5 PG (27-31); MCHC 30.7 g/dL (33-37); MCV 92.9 FL (81-99); MONO# 0.79 X1000 (0.11-0.59); MONO% 9.1 % (1.7-9.3); MPV 9.8 FL (7.4-10.4); NEUT# 5.97 X1000 (1.4-6.5); NEUT% 68.8 % (42.2-75.2); PLT 384 X1000 (130-400); RBC 3.65 XMIL (4.7-6.1); RDW 17.1 % (11.5-14.5); WBC 8.68 X1000 (4.8-10.8)
[2018-07-03 05:20] LABS: AGAP 10; BUN 6 mg/dL (8-22); CALCIUM 8.6 mg/dL (8.8-10.2); CHLORIDE 93 mmol/L (98-107); COSMO 286; CREATININE 0.6 mg/dL (0.7-1.2); ESTIMATED GFR > 60; GLUCOSE 125 mg/dL (70-104); SODIUM 144 mmol/L (136-145); TCO2 41 mmol/L (25-35)
[2018-07-03] MEDS ORDERED: XYLOCAINE-MPF 2% ONE (07:29)
[2018-07-03] MEDS ORDERED: DIPRIVAN 1% ONE (07:29)
[2018-07-03] MEDS: ANORO ELLIPTA 62.5-25 MCG INH INH SCH (07:30)
[2018-07-03] MEDS: NIASPAN PO SCH (08:38)
[2018-07-03] MEDS: CYMBALTA PO SCH ×2 (08:38→20:54)
[2018-07-03] MEDS ORDERED: POTASSIUM CHLORIDE 60 MEQ in NS 500 ML IV ONE (09:29)
[2018-07-03] MEDS ORDERED: SUFENTA ONE (09:32)
[2018-07-03 09:59] LABS: HEPATITIS PROFILE ACUTE SEE COMMENTS
[2018-07-03] MEDS ORDERED: NEO-SYNEPHRINE ONE (10:27)
--- NOTE | 2018-07-03 11:27 | PROGRESS NOTE ---
DATE: 07/03/2018 SUBJECTIVE: Patient is very hard of hearing. He reports feeling pain in the left groin area. Nursing staff reported that this patient was having plenty of drainage from that wound. That dressing needs to be changed every 2 hours. He denies any other complaints. OBJECTIVE: Vital Signs: Temperature 96.9, heart rate 80, respiratory rate 18, blood pressure 138/69. O2 saturation 99% on 4 L nasal cannula. General: This is a chronically ill-looking and frail 68-year-old male lying in no acute distress. HEENT: Head is normocephalic and atraumatic. Neck: No JVD noted. No carotid bruits. No lymphadenopathy. No thyromegaly. Cardiovascular: S1, S2 heard. No murmurs, gallops, or rubs. Regular rate and rhythm. Respiratory: The patient has crackles in both pulmonary bases. There is also prolonged respiratory phase noted but patient is not using any accessory muscles or having work of breathing. Abdomen is soft. Nontender to palpation. Bowel sounds present. No organomegaly. Extremities: Left lower extremity is a little bit less warm than right, but peripheral pulses are present but faint in the left side. Neurological: Patient is alert and oriented x3. Moves 4 extremities. LABORATORY DATA: White cell count 8.6. hemoglobin 10.4, hematocrit 33.9, platelets 384,000. Potassium 3.0 and normal creatinine. ASSESSMENT AND PLAN: 1. Likely infected left iliopsoas hematoma extending up to the groin the draining spontaneously. Dr. Bartlett from General Surgery is planning to take this patient to the OR. We will follow recommendations. From infection standpoint, white cell count is back to normal. He is not tachycardic. We will continue with the same management; in this case, Zosyn. 2. Acute hypoxemic respiratory failure. Patient's oxygen needs are going down. Now, he is requiring 4 L of oxygen by nasal cannula to maintain O2 saturation above 90s. At this point, we will continue with the same management. 3. Transaminitis. I am not quite sure about the reason for this problem. Hepatitis profile has been sent. Crestor has been stopped. The AST and ALT have been a little bit lower today, and total bilirubin has been lowly trending down. At this point, we will continue with the same management. 4. History of coronary artery disease. Patient is not complaining of any chest pain. We will continue to monitor this patient closely. 5. Hypokalemia. Potassium is 3.0 today, so we are going to provide 60 mEq of potassium today. 6. Pulmonary edema. The patient received 1 dose of Lasix yesterday. It looks like this patient is breathing better. We are going to check an x-ray tomorrow, PA and lateral , and we will go from there. 7. Urinary tract infection secondary to Enterobacter. This bacteria is almost pansensitive, so we will continue with Zosyn to treat not only pneumonia but also urinary tract infection in growing infection. DISPOSITION: At this point, the patient is going to go to OR. We will continue to monitor this patient closely here in the unit. cc: Ishan Crisostomo MD MTDD
[2018-07-03] MEDS: PROTONIX IV SCH (15:37)
[2018-07-03] MEDS: SODIUM CHLORIDE 0.9% INJ SCH (15:37)
--- NOTE | 2018-07-03 19:24 | PULMONOLOGY PROGRESS NOTE ---
DATE: 07/03/2018 SUBJECTIVE: The patient was taken to the operating room and has returned. He has a slightly wet cough but is without complaints. OBJECTIVE: Vital Signs: The patient has been afebrile for the last 24 hours. Blood pressure 124/60, heart rate 91, respiratory rate 17, oxygen saturation 95% on 2 liters per nasal cannula. HEENT: Pupils are equal and reactive. The oropharynx is clear. Neck: Supple. Chest: Reveals crackles in the lung bases. Cardiac: S1 and S2. Abdomen: Soft and without hepatosplenomegaly. Extremities: Reveal postsurgical dressings and a drain in the left groin. IMPRESSION: A 68-year-old with bibasilar pneumonia, acute hypoxemic respiratory failure, ongoing tobacco use and pleural effusions, with an abscess in the left groin. The patient has undergone surgical debridement of the left groin and has a dressing in place. Clinically he appears stable to improved. RECOMMENDATIONS: 1. Continue oxygen for hypoxemic respiratory failure. 2. Continue current antibiotics. 3. Smoking cessation will be reiterated at each visit. cc: Basilio Bloom MD
--- NOTE | 2018-07-03 19:29 | OPERATIVE NOTE ---
PROCEDURE DATE: 07/03/2018 PROCEDURE: 1. Exploration of left groin wound. 2. Irrigation and debridement of left ilial psoas and groin abscess. 3. Closure of left groin wound. SURGEON: Romulo Bartlett MD. AFTER SCHOOL TUTOR: Alycia PREOPERATIVE DIAGNOSIS: Left ilial, psoas and groin hematoma. Thrombosed left limb of the aortic graft. POSTOPERATIVE DIAGNOSIS: Left ilial, psoas and groin hematoma. Thrombosed left limb of the aortic graft. DESCRIPTION OF PROCEDURE: Satisfactory general endotracheal anesthesia was achieved. The abdomen, left groin and left thigh were prepped and draped in a sterile fashion. We explored the left groin wound. We excised the skin and necrotic subcutaneous fat in the left groin. At the base of the wound the left limb of the graft was completely exposed. We then explored the cavity going into the ileal psoas retroperitoneum as well as lateral into the musculature of the thigh and inferiorly into the musculature of the thigh. The cavity measured about 10 cm cephalad, 14 cm inferiorly or caudad, and 8 cm laterally. We evacuated all the hematoma and fluid that we could evacuate. I then copiously irrigated the wounds using a Pulsavac spray of saline. After doing that, we then decided to try to close the wound and since the graft was exposed. So, I placed a Chacho drain exiting the skin below the wound in the thigh and oriented that drain up into the iliopsoas cavity. We had another drain that we brought out cephalad and medial to the groin wound. It was oriented down into the thigh region. Both of these drains were secured to the skin with a 2-0 silk. After debriding the skin and subcutaneous tissue. We then used a #2 Prolene stitch in a far near-near far stitch to bring the skin and soft tissue together to cover the graft. There was no bleeding from the graft as it was clotted. There was only meager venous bleeding from the wound. After we brought this soft tissue together we did pack using a half-inch iodoform gauze between the stitches. Sterile dressing was applied. He tolerated it well. About 50 mL of blood was lost. He was sent to the recovery room in stable condition. cc: Romulo Bartlett MD [facility]
[2018-07-03] MEDS: VANCOMYCIN 2 GM in NS 500 ML IV SCH (20:59)
[2018-07-04] MEDS: DILAUDID IV PRN ×5 (01:29→20:43)
[2018-07-04] MEDS: ZOSYN 3.375 GM in NS 50 ML IV SCH ×4 (02:43→20:44)
[2018-07-04] MEDS: DUONEB (A & A) INH SCH ×6 (03:25→23:18)
[2018-07-04 05:17] LABS: BASO# 0.04 X1000 (0.0-0.2); BASO% 0.5 % (0.0-0.8); EOS# 0.05 X1000 (0.0-0.7); EOS% 0.6 % (0.0-10.0); HEMATOCRIT 31.8 % (42.0-52.0); HEMOGLOBIN 9.6 g/dL (14.0-18.0); IMM GRAN# 0.04 X1000 (0.0-0.04); IMM GRAN% 0.5 % (0.0-0.5); LYMPH# 1.81 X1000 (1.2-3.4); LYMPH% 21.7 % (20.5-51.1); MCH 28.2 PG (27-31); MCHC 30.2 g/dL (33-37); MCV 93.3 FL (81-99); MONO# 0.77 X1000 (0.11-0.59); MONO% 9.2 % (1.7-9.3); MPV 9.9 FL (7.4-10.4); NEUT# 5.65 X1000 (1.4-6.5); NEUT% 67.5 % (42.2-75.2); PLT 371 X1000 (130-400); RBC 3.41 XMIL (4.7-6.1); RDW 17.2 % (11.5-14.5); WBC 8.36 X1000 (4.8-10.8)
[2018-07-04 05:59] LABS: AGAP 10; ALB/GLOB RATIO 0.5; ALBUMIN 1.9 g/dL (3.5-5.0); ALKALINE PHOSPHATASE 262 U/L (32-122); BUN 7 mg/dL (8-22); CALCIUM 8.2 mg/dL (8.8-10.2); CHLORIDE 100 mmol/L (98-107); COSMO 287; CREATININE 0.5 mg/dL (0.7-1.2); ESTIMATED GFR > 60; GLUCOSE 102 mg/dL (70-104); GOT 30 U/L (10-34); GPT 25 U/L (10-44); POTASSIUM 3.2 mmol/L (3.5-5.1); SODIUM 145 mmol/L (136-145); TCO2 35 mmol/L (25-35); TOTAL BILIRUBIN 2.24 mg/dL (0.20-1.00); TOTAL PROTEIN 5.6 g/dL (6.3-8.3)
[2018-07-04] MEDS: ANORO ELLIPTA 62.5-25 MCG INH INH SCH (07:32)
[2018-07-04] MEDS: CYMBALTA PO SCH ×2 (08:08→20:42)
[2018-07-04] MEDS: NIASPAN PO SCH (08:08)
--- NOTE | 2018-07-04 09:02 | Diag Imaging Result Doc PS360 ---
CHEST-PORTABLE - 07/04/2018 INDICATION: post op COMPARISON: 07/02/2018 FINDINGS: There has been significant decrease in the bilateral lower lobe infiltrates. Stable borderline heart size. No pneumothorax or significant pleural effusion. IMPRESSION: Significant improvement in the bilateral lower lobe infiltrates or atelectasis. Electronically signed by David Alford 07/04/2018 8:58 AM
[2018-07-04] MEDS ORDERED: POTASSIUM CHLORIDE 60 MEQ in NS 500 ML IV ONE (09:57)
[2018-07-04] MEDS ORDERED: LASIX IV ONE (10:23)
--- NOTE | 2018-07-04 11:11 | PROGRESS NOTE ---
DATE: 07/04/2018 SUBJECTIVE: The patient is very hard of hearing. He reports that he is feeling fine. Definitely less pain in the left groin area. He denies any fever or chills. He reports also eating well. OBJECTIVE: Vital Signs: Temperature 98.2, heart rate 90, respiratory 15, blood pressure 129/63, O2 saturation 95% on 2 L nasal cannula. General: The is a chronically ill- looking and frail, 68- year-old male lying in bed in no acute distress. HEENT: Head is normocephalic and atraumatic. Neck: No JVD noted. No carotid bruits. No lymphadenopathy. No thyromegaly. Cardiovascular: S1, S2 heard. No murmurs, gallops, or rubs. Regular rate and rhythm. Respiratory: Minimal crackles in both pulmonary bases. Patient is not using any accessory muscles or having work of breathing. Abdomen is soft, nontender to palpation. Bowel sounds present. No organomegaly. Extremities: Both lower extremity are warm to palpation and peripheral pulses are present in both legs and there is also a dressing covering the left groin area with a drain in place. Neurologic: Patient is alert and oriented x3. Moves 4 extremities. LABORATORY DATA: White cell count 8.36, hemoglobin 9.6, hematocrit 31.8, platelets 371,000 with BMP remarkable for potassium 3.2. Calcium 8.2. Normal ALT and AST and bilirubin 2.24. ASSESSMENT AND PLAN: 1. Left iliopsoas hematoma, status post exploration, irrigation and debridement of the abscess with closure of the left groin wound. Dr. Bartlett performed that procedure yesterday. His help appreciated. As per patient, Dr. Bartlett mentioned that he is doing good. So, at this point, we will continue with the same management. We will continue with Zosyn. 2. Acute hypoxemic respiratory failure. That condition is getting better. Patient requiring day before yesterday Venturi mask 30% yesterday 4 L of oxygen; today, 2 L of oxygen. The portable x-ray done today also shows significant improvement in bilateral lower lobe infiltrates so at this point, we will continue with the same management. 3. Transaminitis. That condition has resolved although the bilirubin is still high at 2.74. We will continue to monitor CMP. 4. History of coronary artery disease. Patient is fine and not complaining of any chest pain. So, at this point, we will continue with home medications for this chronic medical condition. 5. Hypokalemia. Potassium is still low at 3.2. We will provide potassium supplementation. 6. Pulmonary edema. Patient received 1 dose of Lasix yesterday, and the x-ray from today shows good improvement. At this point, I am going to provide one more dose considering that there are still some crackles in both pulmonary bases. 7. Urinary tract infection secondary to Enterobacter. We will continue with Zosyn, but this bacteria is almost pansensitive. DISPOSITION: At this point, the patient is stable so he can be transferred to the surgical floor today. cc: Ishan Crisostomo MD MTDD
[2018-07-04] MEDS: PROTONIX IV SCH (15:55)
--- NOTE | 2018-07-04 18:00 | PULMONOLOGY PROGRESS NOTE ---
DATE: 07/04/2018 SUBJECTIVE: The patient is awake, alert, and conversant. He has a good cough effort. Cough is slightly congested. OBJECTIVE: The patient has been afebrile for the last 24 hours. Blood pressure 123/65. Heart rate 92. Respiratory rate 19. Oxygen saturation 94%. HEENT: Pupils are equal and reactive. Oropharynx is clear. Neck is supple. Chest reveals occasional rhonchi. Cardiac exam: S1, S2. Abdomen: Soft with good bowel sounds. Extremities: Reveal surgical dressings in the left groin. LABORATORY: Chest x-ray reveals significant improvement in bibasilar infiltrates. IMPRESSION: A 68-year-old with: 1. Bibasilar pneumonia. 2. Acute hypoxemic respiratory failure. 3. Ongoing tobacco use. 4. Abscess in left groin. The patient's chest x-ray is improving. RECOMMENDATIONS: 1. Continue bronchial hygiene. 2. Continue antibiotics. 3. Smoking cessation has been recommended and discussed. 4. Agree with transfer to the floor. cc: Basilio Bloom MD
--- NOTE | 2018-07-04 18:53 | GENERAL SURGERY PROGRESS NOTE ---
DATE: 07/04/2018 Braeden is afebrile. Heart rate is 91, blood pressure 118/70. He is awake and alert. He ate a pretty good breakfast. His wound looks fine. The drains are still engaged. The Iodoform gauze is removed. White count is 8400, hemoglobin 9.6, hematocrit 31.8. Chemistry looks fine. The plan is to leave the drains in for now. His cultures so far are negative. It is okay with me that he go to the floor. He can get up in a chair. He will have to have this wound healed before we consider revascularization to his left leg. cc: Romulo Bartlett MD
[2018-07-04] MEDS: VANCOMYCIN 2 GM in NS 500 ML IV SCH (22:37)
[2018-07-05] MEDS: DILAUDID IV PRN ×5 (00:56→22:08)
[2018-07-05] MEDS: DUONEB (A & A) INH SCH ×6 (03:25→23:05)
[2018-07-05] MEDS: ZOSYN 3.375 GM in NS 50 ML IV SCH ×4 (04:23→22:08)
[2018-07-05 06:54] LABS: BASO# 0.05 X1000 (0.0-0.2); BASO% 0.6 % (0.0-0.8); EOS# 0.12 X1000 (0.0-0.7); EOS% 1.3 % (0.0-10.0); HEMATOCRIT 32.9 % (42.0-52.0); HEMOGLOBIN 9.8 g/dL (14.0-18.0); IMM GRAN# 0.06 X1000 (0.0-0.04); IMM GRAN% 0.7 % (0.0-0.5); LYMPH# 1.76 X1000 (1.2-3.4); LYMPH% 19.7 % (20.5-51.1); MCH 28.1 PG (27-31); MCHC 29.8 g/dL (33-37); MCV 94.3 FL (81-99); MONO# 0.76 X1000 (0.11-0.59); MONO% 8.5 % (1.7-9.3); MPV 10.1 FL (7.4-10.4); NEUT# 6.19 X1000 (1.4-6.5); NEUT% 69.2 % (42.2-75.2); PLT 343 X1000 (130-400); RBC 3.49 XMIL (4.7-6.1); RDW 16.9 % (11.5-14.5); WBC 8.94 X1000 (4.8-10.8)
[2018-07-05 07:21] LABS: AGAP 8; ALB/GLOB RATIO 0.6; ALBUMIN 2.1 g/dL (3.5-5.0); ALKALINE PHOSPHATASE 261 U/L (32-122); BUN 7 mg/dL (8-22); CALCIUM 8.5 mg/dL (8.8-10.2); CHLORIDE 99 mmol/L (98-107); COSMO 280; CREATININE 0.6 mg/dL (0.7-1.2); ESTIMATED GFR > 60; GLUCOSE 114 mg/dL (70-104); GOT 33 U/L (10-34); GPT 27 U/L (10-44); POTASSIUM 3.1 mmol/L (3.5-5.1); SODIUM 141 mmol/L (136-145); TCO2 34 mmol/L (25-35); TOTAL BILIRUBIN 2.02 mg/dL (0.20-1.00); TOTAL PROTEIN 5.8 g/dL (6.3-8.3)
[2018-07-05] MEDS ORDERED: POTASSIUM CHLORIDE 60 MEQ in NS 500 ML IV ONE (09:07)
[2018-07-05] MEDS: NIASPAN PO SCH (09:12)
[2018-07-05] MEDS: CYMBALTA PO SCH ×2 (09:12→22:08)
[2018-07-05] MEDS: ANORO ELLIPTA 62.5-25 MCG INH INH SCH (11:15)
--- NOTE | 2018-07-05 12:00 | PROGRESS NOTE ---
DATE: 07/05/2018 SUBJECTIVE: The patient is very hard of hearing. He reports feeling fine. No shortness of breath. Definitely no pain when resting in the left groin area. No fever or chills. OBJECTIVE: Vital Signs: Temperature 97.6 degrees, heart rate 100, respiratory rate 20, blood pressure 120/68, O2 saturation 96% on room air. General: This is a chronically ill-looking, 68- year-old male, lying in bed, in no acute distress. HEENT: Head is normocephalic and atraumatic. Neck: No JVD noted. No carotid bruits. No lymphadenopathy. No thyromegaly. Cardiovascular: S1, S2 heard. No murmurs, gallops, or rubs. Regular rate and rhythm. Respiratory: There are almost no crackles in both pulmonary bases. Patient is not using any accessory muscles or having work of breathing. Abdomen: Soft. Nontender to palpation. Bowel sounds present. No organomegaly. Extremities: Both lower extremities are warm to palpation. Peripheral pulses present in both legs. Neurological: Patient is alert and oriented x3. Moves 4 extremities. LABORATORY DATA: White cell count 8.94, hemoglobin 9.8, hematocrit 32.9, platelets 243,000. Potassium 3.1. Total bilirubin 2.02 with normal AST and ALT. ASSESSMENT AND PLAN: 1. Left iliopsoas hematoma status post exploration, irrigation, and debridement of the abscess with closure the left groin wound. Dr. Bartlett following this patient. As he think this patient is okay, at this point from his standpoint he is not planning to do any revascularization surgery unless he has this wound closed. We will continue to monitor. 2. Acute hypoxemic respiratory failure secondary to bilateral pneumonia. Condition is getting better radiologically and clinically. He is not requiring any oxygen supplementation today. He is not complaining of any shortness of breath today. At this point, we will continue with antibiotics. Pulmonology is also following this patient. Help appreciated. 3. Transaminitis, resolved. 4. History of coronary artery disease. Patient is stable. Not complaining of any chest pain. 5. Hypokalemia. Potassium is still low at 3.0 so we are going to replete potassium with 60 mEq of potassium IV. 6. Pulmonary edema. The patient has received Lasix yesterday and today. The patient is breathing better, not requiring any oxygen supplementation so at this point, we will continue with the same management. 7. Urinary tract infection secondary to Enterobacter. We will continue with Zosyn because this bacteria is almost pansensitive. We will continue with the same management. 8. Disposition. At this point, we are following the lead from General Surgery. Whenever this patient is stable from his standpoint, patient can be discharged. Because of physical deconditioning, we may need to send this patient to rehabilitation. cc: Ishan Crisostomo MD MTDD
[2018-07-05] MEDS: PROTONIX IV SCH (18:23)
[2018-07-05] MEDS: SODIUM CHLORIDE 0.9% INJ SCH (18:23)
--- NOTE | 2018-07-05 19:10 | GENERAL SURGERY PROGRESS NOTE ---
DATE: 07/05/2018 DATE AND TIME: 07/05/2018 at 12:35. SUBJECTIVE: His cultures from the left groin wound are negative. He has been draining from the drains. He had 115 from one drain and 180 from the other. He is eating better. His bowels have moved. DIAGNOSTICS/LABS: White count is 8900. Chemistries are fine. PLAN: The plan now will be to increase his strength. He will have to heal this wound in his left groin before we consider any revascularization to his left leg. Fortunately, the cultures are negative. So, we will continue with drains for now, but at some point we will discontinue the drains. He may benefit from going to rehabilitation for 3 weeks and healing of the left groin wound and then at some point in July or August we will reconsider his revascularization to his left leg. cc: Romulo Bartlett MD
[2018-07-05] MEDS: VANCOMYCIN 2 GM in NS 500 ML IV SCH (19:41)
--- NOTE | 2018-07-05 21:01 | PULMONOLOGY PROGRESS NOTE ---
DATE: 07/05/2018 SUBJECTIVE: Patient is awake, alert and conversant. Continues to have some sputum production. OBJECTIVE: Vital Signs: Blood pressure 141/64, heart rate 101, respiratory rate 18, oxygen saturation 96% on face mask. HEENT: Pupils are equal and reactive. Oropharynx is clear. Neck: Supple. Chest: Reveals occasional rhonchi bilaterally with bibasilar crackles. Cardiac: S1 and S2. Abdomen: Soft without hepatosplenomegaly. Extremities: Without edema. LABORATORIES: No new microbiology data. White blood count 8.94, hemoglobin 9.8, platelet count 343,000. Sodium 141, potassium 3.1, chloride 99, bicarbonate 34, BUN 7, creatinine 0.6. Bilirubin has decreased to 2.02. IMPRESSION: A 68-year-old with bibasilar pneumonia, hypoxemic respiratory failure and ongoing tobacco use, status post drainage and closure of an abscess in the left groin. He continues to have drains in place. RECOMMENDATIONS: 1. Continue antibiotics. 2. Continue bronchial hygiene. 3. Continue to address smoking cessation. 4. Followup chest x-ray tomorrow morning. cc: Basilio Bloom MD
[2018-07-06] MEDS: DUONEB (A & A) INH SCH ×5 (03:00→20:15)
[2018-07-06] MEDS: ZOSYN 3.375 GM in NS 50 ML IV SCH ×4 (04:55→21:53)
[2018-07-06] MEDS: DILAUDID IV PRN ×5 (06:12→21:53)
[2018-07-06 06:29] LABS: BASO# 0.06 X1000 (0.0-0.2); BASO% 0.8 % (0.0-0.8); EOS# 0.14 X1000 (0.0-0.7); EOS% 1.8 % (0.0-10.0); HEMATOCRIT 31.5 % (42.0-52.0); HEMOGLOBIN 9.5 g/dL (14.0-18.0); IMM GRAN# 0.08 X1000 (0.0-0.04); LYMPH# 1.96 X1000 (1.2-3.4); LYMPH% 24.9 % (20.5-51.1); MCH 28.4 PG (27-31); MCHC 30.2 g/dL (33-37); MONO# 0.67 X1000 (0.11-0.59); MONO% 8.5 % (1.7-9.3); MPV 9.8 FL (7.4-10.4); NEUT# 4.97 X1000 (1.4-6.5); PLT 376 X1000 (130-400); RBC 3.35 XMIL (4.7-6.1); RDW 16.8 % (11.5-14.5); WBC 7.88 X1000 (4.8-10.8)
[2018-07-06 07:09] LABS: AGAP 9; ALB/GLOB RATIO 0.6; ALBUMIN 2.2 g/dL (3.5-5.0); ALKALINE PHOSPHATASE 256 U/L (32-122); BUN 8 mg/dL (8-22); CALCIUM 8.2 mg/dL (8.8-10.2); CHLORIDE 104 mmol/L (98-107); COSMO 283; CREATININE 0.9 mg/dL (0.7-1.2); ESTIMATED GFR > 60; GLUCOSE 97 mg/dL (70-104); GOT 41 U/L (10-34); GPT 32 U/L (10-44); POTASSIUM 3.3 mmol/L (3.5-5.1); SODIUM 143 mmol/L (136-145); TCO2 30 mmol/L (25-35); TOTAL BILIRUBIN 2.01 mg/dL (0.20-1.00); TOTAL PROTEIN 5.8 g/dL (6.3-8.3)
--- NOTE | 2018-07-06 08:06 | Diag Imaging Result Doc PS360 ---
EXAM: CHEST-PORTABLE HISTORY: abnormal exam TECHNIQUE: Portable chest single view COMPARISON: 07/04/2018 FINDINGS: The lungs are well expanded. The heart is not enlarged. The vessels are not distended. There are no infiltrates. No effusion identified. IMPRESSION: Interval improvement with clearing in the lung bases. Electronically signed by Jostin Santos 07/06/2018 8:03 AM
[2018-07-06] MEDS: CYMBALTA PO SCH ×2 (08:49→21:53)
[2018-07-06] MEDS: NIASPAN PO SCH (08:49)
[2018-07-06] MEDS: VANCOMYCIN 2 GM in NS 500 ML IV SCH (12:41)
--- NOTE | 2018-07-06 14:24 | Extremity Venous Study ---
PROCEDURE NAME: Venous U/S Bilateral Legs - 06/30/2018 REFERRING PHYSICIAN: DR. Sanford. READING PHYSICIAN: Chepe Foley MD. LAC[employer] PRESS OPERATOR: Sebastián Navarrete RVT. INDICATION: Left leg swelling. FINDINGS: The deep and superficial veins of the right lower extremity were imaged throughout their course. They are compressible, patent, and without thrombus. There is acute extensive DVT and SVT involving the superficial femoral vein, deep femoral vein, popliteal vein, and greater saphenous vein. There is essentially no flow or at least only minimal flow throughout except a small amount is noted in the popliteal vein. INTERPRETATION: 1. The right lower extremity is without any deep or superficial venous thrombosis. 2. The left lower extremity has acute extensive deep venous thrombosis and superficial venous thrombosis as described above. cc: Chepe Foley MD
[2018-07-06] MEDS: ANORO ELLIPTA 62.5-25 MCG INH INH SCH (15:28)
--- NOTE | 2018-07-06 16:01 | GENERAL SURGERY PROGRESS NOTE ---
DATE: 07/06/2018 TIME: 1040 in the morning. Mr. Mercado is not eating very much. His wound looks about the same. He has put out about 155 mL out of drain one, 125 out of drain two. Laboratory data is about the same. Hemoglobin stable at 9.5. White count is 7800. ASSESSMENT: His cultures of his hematoma are negative. The wound is closed. The drains are in place and is still draining. It is okay with me for him to go to rehab. I think his drain should stay in as long as they produce more than 30 mL a day. He will have to gain strength and improve his caloric intake in order to prepare for surgery to revascularize his left leg which will not occur until this hematoma has resolved completely in his heel. He understands this. I will be glad to follow him up in my office. cc: Romulo Bartlett MD
--- NOTE | 2018-07-06 16:02 | Diag Imaging Result Doc PS360 ---
EXAM: MRI BRAIN W/WO CONTRAST HISTORY: ams, stroke suspected TECHNIQUE: MRI brain with and without contrast. Axial, sagittal, and coronal images obtained in multiple sequences. These are followed by post contrasted axial and coronal images. COMPARISON: None. FINDINGS: No recent infarct. There are mild microvascular ischemic changes with mild atrophy. No mass or midline shift. No hydrocephalus. No epidural or subdural fluid collection. Normal orbits. There is fluid within each mastoid sinus. No other sinus fluid. IMPRESSION: Mild microvascular ischemic changes, but no recent infarct. Electronically signed by Jostin Santos 07/06/2018 4:00 PM
[2018-07-06] MEDS: PROTONIX IV SCH (17:35)
[2018-07-06] MEDS: SODIUM CHLORIDE 0.9% INJ SCH (17:35)
[2018-07-06] MEDS: CLINIMIX E 4.25%-5% SOLUTION 1,000 ML IV SCH (18:21)
[2018-07-06] MEDS: LIPOSYN 20% 250 ML IV SCH (18:21)
--- NOTE | 2018-07-06 20:27 | EEG REPORT ---
DATE: 07/06/2018 EEG #: [id number]. COMMENT: This is a digitally recorded EEG on a 68-year-old patient with reported jerking movement and possible transient confusion, question of seizure. FINDINGS: During waking, medium amplitude 9.5 to 10 Hertz posterior rhythm is present bilaterally and reacts at times to eye opening. Background contains abundant polymorphic and rhythmic theta frequencies over the frontal and central regions symmetrically. There is infrequent slowing into the delta range during waking. Drowsing occurred briefly with appearance of more generalized slowing. Stage 2 sleep was not recorded. Hyperventilation was not done. Photic stimulation did not significantly alter the record. There are occasionally prominent muscle contraction and head movement artifacts, but these do not hinder interpretation. No definite epileptiform discharge was identified. He had some limb jerking noted during the EEG with no associated EEG abnormality. INTERPRETATION: Abnormal EEG because of very mild generalized slowing. CORRELATION: This is indicative of a diffuse encephalopathy and is nonspecific. Findings on this record are minimal. The absence of epileptiform discharges on a single EEG does not exclude a clinical diagnosis of seizure, but there is nothing on this record to suggest the presence of a seizure disorder. cc: MD Ishan Chandler III, MD [facility]PITALTejal
[2018-07-07] MEDS: DUONEB (A & A) INH SCH ×7 (00:27→23:38)
[2018-07-07] MEDS: ZOSYN 3.375 GM in NS 50 ML IV SCH ×4 (03:57→21:15)
[2018-07-07] MEDS: VANCOMYCIN 2 GM in NS 500 ML IV SCH ×2 (04:44→05:01)
[2018-07-07] MEDS: CLINIMIX E 4.25%-5% SOLUTION 1,000 ML IV SCH ×3 (04:45→21:18)
--- NOTE | 2018-07-07 05:01 | PROGRESS NOTE ---
DATE: 07/06/2018 SUBJECTIVE: I went to see this patient and he was more confused than yesterday. Family was at bedside and they report that he was having some involuntary movements in the right side and mostly in the right arm. Also they showed me a video where the patient is having both eyes rolling back that lasted for less than a minute. I asked the patient about it. He does not have any recollection of those symptoms. He has some slurred speech. No other complaints noted. OBJECTIVE: Vitals: Temperature 98.1 degrees, heart rate 82, respiratory rate 20, blood pressure 126/67, O2 saturation 98% on room air. General: This is a chronically ill- looking 68-year-old male lying in bed in no acute distress. HEENT: Head is normocephalic , atraumatic. Neck: No JVD noted. No carotid bruits, no lymphadenopathy, no thyromegaly. Cardiovascular: S1, S2 heard. No murmurs, gallops, or rubs. Regular rate and rhythm. Respiratory: Minimal crackles in both pulmonary bases, patient not using any accessory muscles or having work of breathing. Abdomen: Soft, nontender to palpation. Bowel sounds present. No organomegaly. Extremities: Both lower extremities is warm to palpation, in the groin area there is a wound covered by dressing dry and clean. Neurological: Patient has anisocoria. Patient is more confused. Patient has mild slurred speech. Because this patient is a little bit confused is not possible to obtain proper evaluation of motor strength. The patient looks to have an involuntary movement of the left upper extremity. Move 4 extremities spontaneously. LABORATORY DATA: White cell count 7.98, hemoglobin 9.5, hematocrit 31.5, platelets 376,000, potassium 3.3, rest of the BMP is normal with calcium 8.2, bilirubin 2.01, ASSESSMENT AND PLAN: 1. Left iliopsoas hematoma status post exploration and irrigation and debridement of the abscess with closure of the left groin wound. Dr. Bartlett following this patient, I have talked to him and he thinks this patient is doing fine. From his standpoint he can be discharged with those drains and then he can be seen in the office in a couple weeks or [address] Bartlett reports that he is not planning to do any revascularization process until he has that wound closed, will continue to monitor. 2. Acute hypoxemic respiratory failure secondary to bilateral pneumonia. Actually this patient had an x-ray from 2 days ago that looks stable. He was requiring not any oxygen but he was saturating 91 and he has history of known history of chronic obstructive pulmonary disease not diagnosed formally. At this point will continue with oxygen supplementation in this case 1 L. Pulmonary is also following this patient. 3. Transaminitis resolved. 4. Altered mental status since yesterday to today. This patient is more confused. He is having some involuntary movements in the left upper extremity with different pupil size so at this point for ruling out an acute stroke I am going to order an MRI of the brain and will go from there. Also because of these involuntary movements will do 1 EEG to rule out any seizures. 5. Urinary tract infection due to Enterobacter. At this point will continue with Zosyn. 6. Disposition. At this point will follow the results of the MRI and will go from there. cc: Ishan Crisostomo MD MTDD
[2018-07-07 05:53] LABS: BASO# 0.06 X1000 (0.0-0.2); BASO% 0.7 % (0.0-0.8); EOS# 0.19 X1000 (0.0-0.7); EOS% 2.4 % (0.0-10.0); HEMATOCRIT 32.3 % (42.0-52.0); HEMOGLOBIN 9.5 g/dL (14.0-18.0); IMM GRAN# 0.06 X1000 (0.0-0.04); IMM GRAN% 0.7 % (0.0-0.5); LYMPH# 1.92 X1000 (1.2-3.4); LYMPH% 23.8 % (20.5-51.1); MCH 27.8 PG (27-31); MCHC 29.4 g/dL (33-37); MCV 94.4 FL (81-99); MONO# 0.59 X1000 (0.11-0.59); MONO% 7.3 % (1.7-9.3); MPV 9.9 FL (7.4-10.4); NEUT# 5.24 X1000 (1.4-6.5); NEUT% 65.1 % (42.2-75.2); PLT 380 X1000 (130-400); RBC 3.42 XMIL (4.7-6.1); RDW 16.6 % (11.5-14.5); WBC 8.06 X1000 (4.8-10.8)
[2018-07-07 06:14] LABS: AGAP 13; ALB/GLOB RATIO 0.6; ALBUMIN 2.2 g/dL (3.5-5.0); ALKALINE PHOSPHATASE 223 U/L (32-122); BUN 11 mg/dL (8-22); CALCIUM 8.5 mg/dL (8.8-10.2); CHLORIDE 104 mmol/L (98-107); COSMO 290; ESTIMATED GFR > 60; GLUCOSE 134 mg/dL (70-104); GOT 35 U/L (10-34); GPT 31 U/L (10-44); POTASSIUM 3.3 mmol/L (3.5-5.1); SODIUM 145 mmol/L (136-145); TCO2 28 mmol/L (25-35); TOTAL BILIRUBIN 1.67 mg/dL (0.20-1.00); TOTAL PROTEIN 5.8 g/dL (6.3-8.3)
[2018-07-07] MEDS ORDERED: POTASSIUM CHLORIDE 60 MEQ in NS 500 ML IV ONE (06:39)
[2018-07-07] MEDS: CYMBALTA PO SCH ×2 (08:42→21:21)
[2018-07-07] MEDS: NIASPAN PO SCH (08:42)
--- NOTE | 2018-07-07 09:47 | PROGRESS NOTE ---
DATE: 07/07/2018 SUBJECTIVE: The patient is definitely more awake, alert. I told him how he was congested, but he does not remember why. He was more confused, but now I would say that he is back to his baseline. No complaints at this time except that he had 3 episodes of diarrhea. OBJECTIVE: Vital Signs: Temperature 97.6 degrees, heart rate 89, respiratory rate 20, blood pressure 156/73, O2 saturation 97% on room air. General: This is a chronically ill-looking, 68- year-old male lying in bed, in no acute distress. HEENT: Head is normocephalic, atraumatic. Mucous membranes dry. Neck: No JVD noted. No carotid bruits. No lymphadenopathy. No thyromegaly. Cardiovascular: S1, S2 heard. No murmurs, gallops, or rubs. Regular rate and rhythm. Respiratory: Minimal crackles in both pulmonary bases. The patient is not using any accessory muscles or having work of breathing. Abdomen: Soft, nontender to palpation. Bowel sounds present. No organomegaly. Extremities: Warm to palpation. In the groin area, there is a wound covered by a dressing that is dry and clean. Neurological: The patient is more alert and awake. Follows commands. Having a good conversation. Moves 4 extremities spontaneously. LABORATORY DATA: White cell count 8.06, hemoglobin 9.5, hematocrit 32.3, platelets 380,000, with potassium 3.3 on the BMP. ASSESSMENT AND PLAN: 1. Left iliopsoas hematoma, status post exploration and irrigation and debridement of the abscess with closure of the left groin wound. Dr. Bartlett is following this patient. I talked to him. Definitely, the plan is to send him home to rehab with both drains that we do not need to remove unless we will obtain 30 mL of less of secretion in 24 hours. At this point, we will follow his recommendations. 2. Acute hypoxemic respiratory failure secondary to bilateral pneumonia. The patient is not requiring any oxygen supplementation at this time. 3. Altered mental status. That condition has resolved. We have suspected he had an stroke so we ordered an MRI of the brain with and without contrast, which basically did not show any acute abnormality. Also, the EEG that we ordered to rule out any seizure disorder and although it was reported abnormal it did not show any seizure activity so at this point, we will continue to monitor this patient closely. 4. Transaminitis, resolved. 5. Urinary tract infection due to Enterobacter. We will continue with current medication, in this case Zosyn. 6. Disposition: At this point, the patient is definitely stable. We are awaiting a bed in a rehab facility. Hopefully, that will be on Monday. cc: Ishan Crisostomo MD MTDD
--- NOTE | 2018-07-07 10:47 | GENERAL SURGERY PROGRESS NOTE ---
DATE: 07/07/2018 SUBJECTIVE: Patient seems to be doing okay. ANGIE drains in place still over 30 mL an hour. His wound looks about the same as described by Dr. Bartlett. Otherwise, he has been relatively stable. Once everything is arranged for him to go to rehab, he can go to rehab. We will keep the Oswaldo- Lyons drains in place until they have less than 30 mL a day per Dr. Bartlett's recommendation. cc: Darrion Steinberg MD
[2018-07-07] MEDS: ATIVAN IV PRN ×2 (16:15→21:15)
[2018-07-07] MEDS: LIPOSYN 20% 250 ML IV SCH (16:26)
[2018-07-07] MEDS: SODIUM CHLORIDE 0.9% INJ SCH (16:28)
[2018-07-07] MEDS: PROTONIX IV SCH (16:28)
[2018-07-07] MEDS: DILAUDID IV PRN ×2 (17:23→21:34)
[2018-07-07] MEDS: ZOFRAN IV PRN (21:18)
[2018-07-08] MEDS: VANCOMYCIN 2 GM in NS 500 ML IV SCH (02:06)
[2018-07-08] MEDS: ZOFRAN IV PRN ×3 (02:07→21:23)
[2018-07-08] MEDS: DILAUDID IV PRN ×4 (02:07→21:23)
[2018-07-08] MEDS: DUONEB (A & A) INH SCH ×6 (03:15→23:01)
[2018-07-08] MEDS: CLINIMIX E 4.25%-5% SOLUTION 1,000 ML IV SCH ×2 (06:16→16:19)
[2018-07-08 06:18] LABS: BASO# 0.05 X1000 (0.0-0.2); BASO% 0.7 % (0.0-0.8); EOS# 0.18 X1000 (0.0-0.7); EOS% 2.5 % (0.0-10.0); HEMATOCRIT 33.7 % (42.0-52.0); HEMOGLOBIN 9.9 g/dL (14.0-18.0); IMM GRAN# 0.06 X1000 (0.0-0.04); IMM GRAN% 0.8 % (0.0-0.5); LYMPH# 1.89 X1000 (1.2-3.4); LYMPH% 25.9 % (20.5-51.1); MCHC 29.4 g/dL (33-37); MCV 95.2 FL (81-99); MONO# 0.63 X1000 (0.11-0.59); MONO% 8.6 % (1.7-9.3); MPV 9.9 FL (7.4-10.4); NEUT% 61.5 % (42.2-75.2); PLT 406 X1000 (130-400); RBC 3.54 XMIL (4.7-6.1); RDW 16.8 % (11.5-14.5); WBC 7.31 X1000 (4.8-10.8)
[2018-07-08] MEDS: ZOSYN 3.375 GM in NS 50 ML IV SCH ×3 (06:23→18:48)
[2018-07-08 06:55] LABS: AGAP 11; ALB/GLOB RATIO 0.6; ALBUMIN 2.2 g/dL (3.5-5.0); ALKALINE PHOSPHATASE 186 U/L (32-122); BUN 15 mg/dL (8-22); CALCIUM 8.8 mg/dL (8.8-10.2); CHLORIDE 106 mmol/L (98-107); COSMO 292; ESTIMATED GFR > 60; GLUCOSE 137 mg/dL (70-104); GOT 31 U/L (10-34); GPT 31 U/L (10-44); MAGNESIUM 2.2 mg/dL (1.5-2.7); POTASSIUM 3.7 mmol/L (3.5-5.1); SODIUM 145 mmol/L (136-145); TCO2 28 mmol/L (25-35); TOTAL BILIRUBIN 1.29 mg/dL (0.20-1.00); TOTAL PROTEIN 5.9 g/dL (6.3-8.3)
--- NOTE | 2018-07-08 07:18 | GENERAL SURGERY PROGRESS NOTE ---
DATE: 07/08/2018 Patient is doing well. No major issues. ANGIE drains still have over 30 mL a day. We will keep them in place for right now. Options for rehab still being arranged. Otherwise, continue current treatment. cc: Darrion Steinberg MD
[2018-07-08] MEDS: CYMBALTA PO SCH ×2 (09:04→21:25)
[2018-07-08] MEDS: NIASPAN PO SCH (09:04)
--- NOTE | 2018-07-08 10:07 | PROGRESS NOTE ---
DATE: 07/08/2018 SUBJECTIVE: Patient is definitely alert and awake like yesterday. Yesterday afternoon I was called by the daughter who informed me that her dad was very restless, confused, and having some involuntary movements. Apparently, that condition resolved when we used Ativan. This morning he is completely awake, alert, on good spirits. Also, daughter is at bedside. OBJECTIVE: Vital Signs: Temperature 98.9 degrees, heart rate 91, respiratory rate 18, blood pressure 133/64, O2 saturation 99% on room air. General Examination: This is a chronically ill- looking, 68-year-old male, lying in bed, in no acute. HEENT: Head is normocephalic, atraumatic. Neck: No JVD. No carotid bruits. No lymphadenopathy. No thyromegaly. Cardiovascular: S1, S2 heard. No murmurs, gallops, or rubs. Regular rate and rhythm. Respiratory: Minimal crackles still present in both pulmonary bases. Definitely better in comparing with previous days. Patient is not using any accessory muscles or having work of breathing. Abdomen: Soft. Nontender to palpation. Bowel sounds. No organomegaly. Extremities: Warm to palpation. In the groin area there is a wound covered by dressing. Neurological: Patient is an alert, awake. Follows commands. LABORATORY DATA: White cell count 7.31, hemoglobin 9.9, hematocrit 33.7, platelets 406,000. Normal BMP. Blood sugars 137, total bilirubin 1.9. ASSESSMENT AND PLAN: 1. Left iliopsoas hematoma, status post exploration and irrigation and debridement of the abscess with closure of the left groin wound. As per surgery, patient is doing good. Unless there is 30 mL or less of drainage, they are going to keep both drains in place. 2. Acute hypoxemic respiratory failure secondary to bilateral pneumonia. Patient has been on vancomycin and Zosyn, eight days for both medications, so I think at the time of discharge this patient will not need any more medication. 3. Altered mental status. Actually this looks like delirium. At this point daughter, who is a nurse, suggests we have a neurology consultation. I think it is reasonable; we will do that. 4. Transaminitis, resolved. 5. Urinary tract infection secondary to Enterobacter. Aware. We will continue with the same management. 6. Disposition. At this point, this patient is stable and waiting for a rehab bed. We will continue to monitor. cc: Ishan Crisostomo MD
[2018-07-08] MEDS: ATIVAN IV PRN ×3 (10:59→21:36)
[2018-07-08] MEDS: LIPOSYN 20% 250 ML IV SCH (16:19)
[2018-07-08] MEDS: PROTONIX IV SCH (18:48)
[2018-07-08] MEDS: SODIUM CHLORIDE 0.9% INJ SCH (18:49)
[2018-07-09] MEDS: DILAUDID IV PRN ×3 (00:39→18:23)
[2018-07-09] MEDS: ZOSYN 3.375 GM in NS 50 ML IV SCH ×5 (01:50→19:42)
[2018-07-09] MEDS: CLINIMIX E 4.25%-5% SOLUTION 1,000 ML IV SCH ×3 (01:51→13:42)
[2018-07-09] MEDS: ATIVAN IV PRN ×2 (01:52→07:48)
[2018-07-09] MEDS: DUONEB (A & A) INH SCH ×3 (03:38→23:25)
[2018-07-09 06:10] LABS: BASO# 0.07 X1000 (0.0-0.2); BASO% 0.9 % (0.0-0.8); EOS# 0.26 X1000 (0.0-0.7); EOS% 3.3 % (0.0-10.0); HEMATOCRIT 32.8 % (42.0-52.0); HEMOGLOBIN 9.8 g/dL (14.0-18.0); IMM GRAN# 0.06 X1000 (0.0-0.04); IMM GRAN% 0.8 % (0.0-0.5); LYMPH# 1.87 X1000 (1.2-3.4); LYMPH% 23.4 % (20.5-51.1); MCH 28.4 PG (27-31); MCHC 29.9 g/dL (33-37); MCV 95.1 FL (81-99); MONO# 0.67 X1000 (0.11-0.59); MONO% 8.4 % (1.7-9.3); MPV 10.1 FL (7.4-10.4); NEUT# 5.07 X1000 (1.4-6.5); NEUT% 63.2 % (42.2-75.2); PLT 379 X1000 (130-400); RBC 3.45 XMIL (4.7-6.1); RDW 16.6 % (11.5-14.5)
[2018-07-09 06:18] LABS: AGAP 11; ALB/GLOB RATIO 0.7; ALBUMIN 2.4 g/dL (3.5-5.0); ALKALINE PHOSPHATASE 213 U/L (32-122); BUN 17 mg/dL (8-22); CALCIUM 8.8 mg/dL (8.8-10.2); CHLORIDE 100 mmol/L (98-107); COSMO 279; CREATININE 0.9 mg/dL (0.7-1.2); ESTIMATED GFR > 60; GLUCOSE 123 mg/dL (70-104); GOT 29 U/L (10-34); GPT 30 U/L (10-44); MAGNESIUM 2.2 mg/dL (1.5-2.7); SODIUM 138 mmol/L (136-145); TCO2 27 mmol/L (25-35); TOTAL BILIRUBIN 1.29 mg/dL (0.20-1.00)
--- NOTE | 2018-07-09 07:11 | Diag Imaging Result Doc PS360 ---
CHEST-1 VIEW - 07/09/2018 INDICATION: SOB COMPARISON: 07/06/2018 FINDINGS: There is worsening in ill-defined bilateral lower lobe infiltrates. Heart size and pulmonary vascularity are borderline. No pneumothorax or significant pleural effusion. IMPRESSION: Ill-defined bibasilar infiltrates, worsened since prior. Electronically signed by David Alford 07/09/2018 7:08 AM
[2018-07-09] MEDS: NIASPAN PO SCH (08:26)
[2018-07-09] MEDS: CYMBALTA PO SCH ×2 (08:26→22:00)
--- NOTE | 2018-07-09 09:43 | PROGRESS NOTE ---
DATE: 07/09/2018 SUBJECTIVE: The patient is a little bit confused this morning. As per family who was at bedside and also as per nurse, he had slept just an hour yesterday. He has been having visual hallucinations. Please see notes from nurse. The patient is not aware of what happened to him. Family is very concerned about this mental status changes and involuntary movement. OBJECTIVE: Vital Signs: Temperature 97.6 degrees, heart rate 91, respiratory rate 20, blood pressure 131/71, O2 saturation 92% on room air. General Examination: This is a chronically ill- looking, 68-year-old, male, lying in bed, in no acute distress. HEENT : Head is normocephalic and atraumatic. Mucous membranes are dry. Pupils are anisocoric. I think it would be at least 1 to 1.3 mm difference between them. Neck: No JVD noted. No carotid bruits. No lymphadenopathy. No thyromegaly. Cardiovascular Examination: S1 and S2 heard. No murmurs, gallops, or rubs. Regular rate and rhythm. Respiratory Examination: Minimal coarse breath sounds present in both pulmonary bases. Patient is not using any accessory muscles or having work of breathing. Abdomen: Soft, nontender to palpation. Bowel sounds present. No organomegaly. Extremities: Warm to palpation. In the groin area, there is a wound covered by a dressing. No drainage noted. Neurological Examination: The patient is a little bit sleepy but awake. Follows commands. Moves 4 extremities spontaneously. Cranial nerves 2-12 grossly normal. Laboratory Data: White cell count 8.0, hemoglobin 9.8, hematocrit 32.8, platelets 379,000. Normal BMP with total bilirubin of 1.39 ASSESSMENT AND PLAN: 1. Left iliopsoas hematoma, status post exploration, irrigation and debridement of the abscess with closure of the left groin wound. General surgery is following this patient. As per their note, the patient is doing fine. There are still drains from there so will wait for them to remove them. No other issues noted. 2. Acute hypoxemic respiratory failure secondary to bilateral pneumonia. The patient has been on vancomycin and Zosyn for approximately 9 days. Vancomycin through has been checked today. At this point, we will continue following recommendations from pulmonary but so far, he is doing fine. I think 10 days of both medications should be enough for him. 3. Altered mental status. We have had a long conversation with the family. Because this patient continues to have changes in mental status and actually yesterday he was not able to sleep and he was having some visual hallucinations, MRI of the brain with and without contrast has been ordered which was negative for any stroke. Also, EEG has been ordered. There are no epileptiform waves noted to suggest seizure disorder. In any case, what I am going to do is to provide medication at night for sleeping. We are going to consult neurology and we will go from there. 4. Transaminitis, resolved. 5. Urinary tract infection secondary to Enterobacter. Aware. I think at the time that we stop antibiotics for his pneumonia, I think that infection should have been treated as well. 6. Disposition. At this point, the patient is stable and waiting for a rehab bed. We will continue to monitor this patient closely. cc: Ishan Crisostomo MD MTDD
[2018-07-09] MEDS: FLOMAX PO SCH (10:29)
--- NOTE | 2018-07-09 12:12 | GENERAL SURGERY PROGRESS NOTE ---
DATE: 07/09/2018 SUBJECTIVE: Some intermittent agitation and he is somnolent during the day and restless at night. No fevers. No tachycardia. OBJECTIVE: Vitals: Blood pressure 136/62. His oxygen saturations have been low 90s. General: He is alert and oriented and arousable, but he does kind of nod off when you are talking to him. Abdomen: Soft. His left groin is flat. There is a dressing in place. It is clean and ANGIE drain shows dense serosanguineous fluid. LABORATORY: White count is 8, hematocrit 32, creatinine is 0.9. ASSESSMENT AND PLAN: This is a 68-year-old gentleman with a left retroperitoneal and groin infected hematoma that has been drained by Dr. Bartlett. He also has developed some difficulty urinating overnight. We bladder scanned and he has a [address] him on Sutherland and start him on Flomax. Otherwise, I do think we need to limit his benzodiazepine use. We want to stop his Ativan as I think this is contributing to his somnolence and possibly his agitation. He is on Seroquel at night. I think that is reasonable. Truealta. We will continue to follow along. He is on appropriate antibiotics. We will need to work on his deconditioning and his nutrition. cc: Janki Yuen MD
[2018-07-09] MEDS: LIPOSYN 20% 250 ML IV SCH (14:13)
[2018-07-09] MEDS: PROTONIX IV SCH (17:55)
[2018-07-09] MEDS: SODIUM CHLORIDE 0.9% INJ SCH (17:55)
[2018-07-09] MEDS: SEROQUEL PO SCH (22:00)
[2018-07-10] MEDS: CLINIMIX E 4.25%-5% SOLUTION 1,000 ML IV SCH ×3 (00:10→19:09)
[2018-07-10] MEDS: DILAUDID IV PRN ×4 (00:10→19:35)
[2018-07-10] MEDS: ZOSYN 3.375 GM in NS 50 ML IV SCH ×4 (01:33→19:09)
[2018-07-10] MEDS: DUONEB (A & A) INH SCH ×9 (02:59→23:08)
[2018-07-10 06:01] LABS: MAGNESIUM 2.3 mg/dL (1.5-2.7); RANDOM VANCOMYCIN 13.7 ug/mL (5.0-80)
[2018-07-10] MEDS ORDERED: VANCOMYCIN 2,000 MG in NS 500 ML IV SCH (08:00)
[2018-07-10] MEDS: CYMBALTA PO SCH ×2 (08:47→20:30)
[2018-07-10] MEDS: FLOMAX PO SCH (08:47)
[2018-07-10] MEDS: NIASPAN PO SCH (08:47)
--- NOTE | 2018-07-10 11:49 | GENERAL SURGERY PROGRESS NOTE ---
DATE: 07/10/2018 SUBJECTIVE: No events. He did rest well yesterday blood last night. No fevers. OBJECTIVE: Vitals: Pulse has been high 90s, now 86, blood pressure 114/66, oxygen saturation 95%. General: He is more alert, less agitated. Abdomen: Soft. His left groin is flat. ANGIE drains were more thin, serosanguineous. LABORATORY: White count was normal yesterday, hematocrit stable at 32. ASSESSMENT/PLAN: A 68-year-old gentleman with infected left retroperitoneal hematoma. This seems to be improving. I suspect we can begin removing his drains tomorrow. He needs to be out of bed and ambulating more, we are working on his nutrition. From a neurologic standpoint his agitation is improving. We did place a Sutherland, and started him on Flomax. We will try to remove his Sutherland tomorrow. He is on appropriate antibiotics. cc: Janki Yuen MD
[2018-07-10] MEDS: LIPOSYN 20% 250 ML IV SCH (15:33)
[2018-07-10] MEDS: ANORO ELLIPTA 62.5-25 MCG INH INH SCH (15:43)
--- NOTE | 2018-07-10 18:55 | PROGRESS NOTE ---
DATE: 07/10/2018 SUBJECTIVE: Patient resting in bed. His sensorium seemed to have improved. OBJECTIVE: Vital signs: Temperature 97.6 degrees, pulse 95, respiratory 20, blood pressure 119/56, O2 saturation 92 percent. HEENT: Atraumatic, normocephalic. Cardiovascular: S1, S2. Respiratory: Has evidence of good entry bilaterally. Abdomen: Soft, nontender. No masses felt. Extremities: No evidence of edema in lower extremities. Central nervous system: No obvious focal deficits noted. LABS: Potassium 4.2, magnesium 2.3, vancomycin level 13.7. ASSESSMENT AND PLAN: 1. Left iliopsoas hematoma, surgery following. 2. Acute respiratory failure secondary to bilateral pneumonia. Continue antibiotics. 3. Altered mental status. Patient's mental status seems to be improving. Continue to follow on his neurologic status. 4. Urinary tract infection. Continue antibiotics. 5. Urinary retention. Maintain Sutherland, continue Flomax, urology consult. 6. Disposition. Waiting for rehab placement. cc: Rivas Raygoza MD
[2018-07-10] MEDS: PROTONIX IV SCH (19:08)
[2018-07-10] MEDS: SODIUM CHLORIDE 0.9% INJ SCH (19:08)
[2018-07-10] MEDS: SEROQUEL PO SCH (20:30)
[2018-07-11] MEDS: DILAUDID IV PRN ×4 (01:39→23:39)
[2018-07-11] MEDS: ZOSYN 3.375 GM in NS 50 ML IV SCH ×4 (01:39→18:11)
[2018-07-11] MEDS: DUONEB (A & A) INH SCH ×6 (03:45→23:00)
[2018-07-11] MEDS: CLINIMIX E 4.25%-5% SOLUTION 1,000 ML IV SCH ×2 (05:37→15:04)
[2018-07-11] MEDS: ANORO ELLIPTA 62.5-25 MCG INH INH SCH (07:59)
[2018-07-11] MEDS: CYMBALTA PO SCH ×2 (08:18→21:46)
[2018-07-11] MEDS: FLOMAX PO SCH ×2 (08:18→21:45)
[2018-07-11] MEDS: NIASPAN PO SCH (08:18)
--- NOTE | 2018-07-11 09:01 | GENERAL SURGERY PROGRESS NOTE ---
DATE: 07/11/2018 SUBJECTIVE: No events overnight. No fevers. No tachycardia. I reviewed his labs. White count remains normal. His left groin wound is intact. There are Prolene sutures in place. There is no cellulitis. There is no swelling. ANGIE drains continued to put out quite a bit of serosanguineous output. ASSESSMENT AND PLAN: This is a gentleman with left retroperitoneal and inguinal hematoma. It was infected and it has been drained by Dr. Bartlett. We will continue his drain care for now. I suspect that the output decreases if we begin at least removing the more cephalad drain. His wound shows no signs of erythema or recurrent swelling. His leg has baseline level perfusion. He is on appropriate antibiotics. We will continue to monitor. cc: Janki Yuen MD
--- NOTE | 2018-07-11 09:08 | Diag Imaging Result Doc PS360 ---
EXAM: CHEST-1 VIEW HISTORY: pneumonia TECHNIQUE: Portable chest COMPARISON: 07/09/2018 FINDINGS: The lungs are well expanded. The heart is not enlarged. The vessels are not distended. There are no infiltrates. No effusion identified. IMPRESSION: No pneumonia. Electronically signed by Jostin Santos 07/11/2018 9:06 AM
[2018-07-11 09:24] LABS: BASO# 0.05 X1000 (0.0-0.2); BASO% 0.5 % (0.0-0.8); EOS# 0.22 X1000 (0.0-0.7); EOS% 2.1 % (0.0-10.0); HEMATOCRIT 34.2 % (42.0-52.0); HEMOGLOBIN 10.1 g/dL (14.0-18.0); IMM GRAN# 0.05 X1000 (0.0-0.04); IMM GRAN% 0.5 % (0.0-0.5); LYMPH# 1.96 X1000 (1.2-3.4); LYMPH% 19.1 % (20.5-51.1); MCH 28.2 PG (27-31); MCHC 29.5 g/dL (33-37); MCV 95.5 FL (81-99); MONO# 0.64 X1000 (0.11-0.59); MONO% 6.2 % (1.7-9.3); NEUT# 7.35 X1000 (1.4-6.5); NEUT% 71.6 % (42.2-75.2); PLT 395 X1000 (130-400); RBC 3.58 XMIL (4.7-6.1); RDW 16.5 % (11.5-14.5); WBC 10.27 X1000 (4.8-10.8)
[2018-07-11 10:01] LABS: AGAP 11; ALB/GLOB RATIO 0.7; ALBUMIN 2.5 g/dL (3.5-5.0); ALKALINE PHOSPHATASE 200 U/L (32-122); BUN 20 mg/dL (8-22); CALCIUM 9.2 mg/dL (8.8-10.2); CHLORIDE 103 mmol/L (98-107); COSMO 294; CREATININE 1.1 mg/dL (0.7-1.2); ESTIMATED GFR > 60; GLUCOSE 146 mg/dL (70-104); GOT 26 U/L (10-34); GPT 28 U/L (10-44); POTASSIUM 4.2 mmol/L (3.5-5.1); SODIUM 145 mmol/L (136-145); TCO2 31 mmol/L (25-35); TOTAL BILIRUBIN 1.14 mg/dL (0.20-1.00); TOTAL PROTEIN 6.3 g/dL (6.3-8.3)
[2018-07-11] MEDS ORDERED: FLOMAX PO ONE (14:03)
[2018-07-11] MEDS: LIPOSYN 20% 250 ML IV SCH (15:03)
--- NOTE | 2018-07-11 15:03 | CONSULTATION ---
DATE OF CONSULTATION: 07/11/2018 ATTENDING AND REFERRING: Hospitalist. HISTORY OF PRESENT ILLNESS: This 68-year-old male was admitted with left inguinal area and retroperitoneal infected hematoma. He has undergone incision and drainage of this and has indwelling ANGIE drains (x2). The patient's Sutherland catheter was removed 2 days ago and he was unable to void. Flomax at 0.4 mg a day was started. His postvoid scan was over 1000 mL and the Sutherland catheter was placed. The patient states that this has never occurred before. His is at bedside and also states he does not complain of any voiding problems. There is no history of previous urologic surgery. He has no history of kidney stones. He has no problems with urinary tract infections. He usually does not take any type of sinus medication. PAST MEDICAL HISTORY: Coronary artery disease, elevated cholesterol, peripheral vascular disease, COPD and depression. CURRENT MEDICATIONS: Documented on the chart and include Flomax at 0.4 mg every morning. PAST SURGICAL HISTORY: T and A, left carotid endarterectomy, appendectomy, open aortic to bifemoral bypass graft that has an occluded left iliac graft. IVC filter placement. Lower back surgery as noted in the HPI. SOCIAL HISTORY: Continued tobacco use. No alcohol use. ALLERGIES: He is allergic to morphine. REVIEW OF SYSTEMS: There is no problems with diabetes, seizures or recent bowel problems. PHYSICAL EXAMINATION: General: A normally developed, well-nourished, age apparent, white male, oriented in all ways and cooperative. HEENT: Normal for age. Lungs: Clear. Cardiovascular: Regular rate and rhythm. Abdomen: Well healed midline scar from xiphoid to pubic bone. Normal bowel sounds. No hepatosplenomegaly or masses. : Uncircumcised male with Sutherland catheter in place. Both testes down, palpably normal. No inguinal hernias. Rectal: Normal sphincter tone. Prostate about 30 to 40 g smooth and symmetric. Extremities: No cyanosis, clubbing, or edema. There are ANGIE drains in the left inguinal area (x2). Neuro: No focal deficits. LABORATORY EVALUATION: He has a white count 10.27 hemoglobin 10.1, hematocrit of 34.2, platelets are 395,000. Serum chemistry has normal electrolytes with a BUN of 20, creatinine 1.1. Glucose was 146. IMPRESSION: 1. Patient with multiple medical problems. 2. Urinary retention. RECOMMEND: 1. Continue Sutherland drainage until Monday morning and then a voiding trial. 2. Increase Flomax to 0.4 mg b.i.d. Hopefully, his voiding will be easier when he is able to stand to void. Physical therapy has been ordered by his attending physician. Thank you for this consultation. cc: Cesar Harris MD
[2018-07-11] MEDS: SODIUM CHLORIDE 0.9% INJ SCH (16:46)
[2018-07-11] MEDS: PROTONIX IV SCH (16:46)
--- NOTE | 2018-07-11 17:39 | PROGRESS NOTE ---
DATE: 07/11/2018 INTERVAL HISTORY: Encephalopathy, essentially resolved. No current dyspnea. Sutherland remained in place for urinary retention. Afebrile overnight. No acute events overnight. No new complaints. REVIEW OF SYSTEMS: Twelve point review of systems negative except as per interval history. LABORATORY DATA: White count 10.2, hemoglobin 10.1, hematocrit 34.2, platelets 395,000, glucose 146, total bilirubin 1.14, alkaline phosphatase 200, albumin 2.5. Complete metabolic panel otherwise unremarkable. VITAL SIGNS: T-max 98.4 degrees, pulse 88, respirations 16, blood pressure 131/ 59, O2 saturation 92% on room air. IMAGING: Chest x-ray with no infiltrate or effusion. Markedly improved from previous. PHYSICAL EXAMINATION: General: No acute distress. Vitals: As above. HEENT: Normocephalic, atraumatic. Moist mucous membranes. Neck: No cervical adenopathy. Cardiovascular: Regular rate and rhythm. No murmurs, rubs, or gallops. Pulmonary: Clear to auscultation bilaterally. At this point, no wheezing, rales or rhonchi. Abdomen: Soft. Drain is noted in the left abdomen. Extremities: Peripheral pulses decreased but intact. Trace left lower extremity edema noted. Neurologic: Globally weak but no focal deficits identified. Cranial nerves appear intact. Psychiatric: Normal mood and affect. Awake, alert, currently oriented x3. Skin: No new rashes or early noted. ASSESSMENT AND PLAN: 1. Left iliopsoas hematoma with infection status post surgical drainage. Drains remain in place although output appears to be decreasing. Output is nonpurulent. Continuing on antibiotics. Currently on Zosyn and vancomycin. 2. Likely acute hypoxic respiratory failure. O2 saturations somewhat improved from admission, but still has occasional mild hypoxia on room air. Initially thought to be due to pneumonia, but pneumonia appears essentially resolved on imaging. The patient did have a recent PE at [facility] prior to admission which may be contributing to ongoing mild hypoxia. We will continue to monitor. Give supplemental O2 as needed. As above pneumonia appears essentially resolved but on antibiotics anyway for infected iliopsoas hematoma. 3. Urinary tract infection. Urine culture with Enterobacter aerogenes resistant only to cefazolin and Macrobid. This should be adequately treated by antibiotics for pneumonia and infected hematoma as above. 4. Left leg deep venous thrombosis. Very little swelling at this point. The patient with recently placed IVC filter. Not currently on anticoagulation because of iliopsoas hematoma as above. 5. Urinary retention, likely benign prostatic hypertrophy. Tamsulosin increased by Urology. We will consider voiding trial in 1 to 2 days. 6. Elevated LFTs and bilirubin. Bilirubin minimally elevated and appears to be trending down. Same for alkaline phosphatase and AST. Uncertain of the etiology. CT of the abdomen and pelvis did show nonspecific hypodense lesions in the liver. Recommend outpatient further evaluation with ultrasound and over repeat CT. N acute intervention at this time as lab abnormalities appear to be resolving. 7. Deep vein thrombosis prophylaxis with sequential compression device. 8. Disposition: Likely going to rehab once drains are removed and if otherwise stable. [facility] HOSPITALTejal
[2018-07-11] MEDS: SEROQUEL PO SCH (21:45)
[2018-07-12] MEDS: ZOSYN 3.375 GM in NS 50 ML IV SCH ×4 (00:38→18:23)
[2018-07-12] MEDS: DUONEB (A & A) INH SCH ×6 (03:43→21:35)
[2018-07-12 05:48] LABS: BASO# 0.04 X1000 (0.0-0.2); BASO% 0.4 % (0.0-0.8); EOS# 0.17 X1000 (0.0-0.7); EOS% 1.6 % (0.0-10.0); HEMATOCRIT 32.4 % (42.0-52.0); HEMOGLOBIN 9.7 g/dL (14.0-18.0); IMM GRAN# 0.06 X1000 (0.0-0.04); IMM GRAN% 0.6 % (0.0-0.5); LYMPH# 1.88 X1000 (1.2-3.4); MCH 28.3 PG (27-31); MCHC 29.9 g/dL (33-37); MCV 94.5 FL (81-99); MONO# 0.82 X1000 (0.11-0.59); MONO% 7.8 % (1.7-9.3); NEUT% 71.6 % (42.2-75.2); PLT 387 X1000 (130-400); RBC 3.43 XMIL (4.7-6.1); RDW 16.3 % (11.5-14.5); WBC 10.47 X1000 (4.8-10.8)
[2018-07-12] MEDS: CLINIMIX E 4.25%-5% SOLUTION 1,000 ML IV SCH ×4 (06:11→20:46)
[2018-07-12 06:21] LABS: AGAP 9; ALB/GLOB RATIO 0.7; ALBUMIN 2.5 g/dL (3.5-5.0); ALKALINE PHOSPHATASE 213 U/L (32-122); BUN 20 mg/dL (8-22); CHLORIDE 100 mmol/L (98-107); COSMO 278; ESTIMATED GFR > 60; GLUCOSE 129 mg/dL (70-104); GOT 22 U/L (10-34); GPT 26 U/L (10-44); POTASSIUM 3.9 mmol/L (3.5-5.1); SODIUM 137 mmol/L (136-145); TCO2 28 mmol/L (25-35); TOTAL BILIRUBIN 1.08 mg/dL (0.20-1.00); TOTAL PROTEIN 6.1 g/dL (6.3-8.3)
[2018-07-12] MEDS: DILAUDID IV PRN ×4 (06:30→20:46)
--- NOTE | 2018-07-12 07:37 | Diag Imaging Result Doc PS360 ---
EXAM: CHEST-PORTABLE INDICATION: ?PNA. ? pulm edema. dyspnea TECHNIQUE: One view COMPARISON: 07/11/2018 FINDINGS: The lungs are grossly clear. There is no discrete pleural fluid collection or pneumothorax. The central vasculature may be very slightly prominent which could represent mild pulmonary venous congestion. The cardiac silhouette is unremarkable. IMPRESSION: Questionable mild pulmonary venous congestion. Essentially unremarkable, otherwise. Electronically signed by Dino Kevin 07/12/2018 7:35 AM
[2018-07-12] MEDS: ANORO ELLIPTA 62.5-25 MCG INH INH SCH (08:00)
[2018-07-12] MEDS ORDERED: VANCOMYCIN 2,000 MG in NS 500 ML IV SCH (08:00)
[2018-07-12] MEDS: FLOMAX PO SCH ×2 (10:55→20:45)
[2018-07-12] MEDS: CYMBALTA PO SCH ×2 (10:55→21:59)
[2018-07-12] MEDS: NIASPAN PO SCH (10:55)
--- NOTE | 2018-07-12 14:10 | PROGRESS NOTE ---
DATE: 07/12/2018 OVERNIGHT: No acute events. SUBJECTIVE: He does not appear in acute distress. Complains of pain at the left groin site, but otherwise denies any other complaints. The patient's is at bedside. Plan of care was discussed with her. All of her questions have been answered. OBJECTIVE: Vitals: Temperature 97.6 degrees, pulse 98 per minute, blood pressure 99/67, saturating 91% on room air. General examination: On physical examination, the patient does not appear in acute distress. HEENT: Oral cavity is moist. No pallor, cyanosis, clubbing, or icterus. Lungs: Air entry bilaterally equal with distant appearing breath sounds. No wheeze or rhonchi. No crackles. Cardiovascular: S1, S2 normal. No murmur or gallop. Abdomen: Soft, nontender. Extremities: No lower extremity edema. Left groin has sutures, and the site appears noninflamed. The right tube is coming out draining blood mixed with sanguinous discharge. LABS: Labs today suggestive of stable hemoglobin of 9.7, platelet count of 387. Normal electrolytes. Normal kidney function. ASSESSMENT AND PLAN: 1. Left iliopsoas hematoma with infection status post surgical drainage. The drain output has been decreasing and nonpurulent as well. I will appreciate Surgery recommendation about discontinuing vancomycin and Zosyn. 2. Acute hypoxic respiratory failure with SpO2 of 91% on room air. He has extensive smoking history and the [facility] discharge summary also mentions chronic obstructive pulmonary disease. The patient denies using any inhalers at home. Currently, he does not appear in any acute distress, so we will give oxygen through nasal cannula to maintain saturation more than 90%. His recent right-sided pulmonary embolism could also be contributing to his hypoxia. 3. Left lower extremity extensive deep vein thrombosis with right-sided pulmonary embolism status post inferior vena cava filter diagnosed in early June 2018. At the time of discharge he was discharged on Eliquis. I will appreciate Surgery recommendation about resuming either enoxaparin or Eliquis since his drain output has been consistently decreasing. 4. Bilateral lower lobe pneumonia and urinary tract infection during this hospital admission. Based on chest x-ray, it looks like pneumonia has resolved and he has been on appropriate antibiotics for urine infection. I will appreciate Surgery recommendation about discontinuing antibiotics for iliopsoas abscess. 5. Transaminitis, elevated liver function tests, now resolving. 6. Left upper lung nodule diagnosed at [facility], which was suspicious for a neoplasm. The patient should follow up outpatient to consider getting a biopsy after he has been anticoagulated for at least 4 weeks. He was also diagnosed with thrombosis of left common iliac artery with collaterals during that hospital admission. 7. Continue hydromorphone as needed for pain associated with left drain site. Continue quetiapine at nighttime. Continue albuterol ipratropium for shortness of breath. 8. Urine retention. The patient is on Sutherland catheter. Continue tamsulosin. Urology on board. 9. Others. Continue quetiapine to control agitation, duloxetine for chronic pain. 10. Nutrition: The patient continues to have poor oral intake and is receiving intravenous nutrition. The plan is to discontinue intravenous nutrition in the near future and encourage him to eat by mouth. Plan of care was discussed with the . All of her questions have been answered. cc: Fitz Concepcion MD
[2018-07-12] MEDS: SODIUM CHLORIDE 0.9% INJ SCH (17:20)
[2018-07-12] MEDS: PROTONIX IV SCH (17:20)
[2018-07-12] MEDS: LIPOSYN 20% 250 ML IV SCH (18:29)
[2018-07-12] MEDS: SEROQUEL PO SCH (20:45)
--- NOTE | 2018-07-13 01:29 | GENERAL SURGERY PROGRESS NOTE ---
DATE: 07/12/2018 SUBJECTIVE: He is not eating. He is not ambulating. No fevers. OBJECTIVE: Pulse 89, blood pressure 125/58, oxygen saturation low 90s on room air. General: He is alert and conversant. Cardiovascular: Normal rate. Abdomen: Soft. His left incision is intact. ANGIE drainage is serosanguineous with minimal output. LABORATORY DATA: White count is 10, hematocrit 32. Creatinine is 1.0, glucose 129. ASSESSMENT AND PLAN: A 68-year-old gentleman status post evacuation of left retroperitoneal hematoma. We removed one of his drains today. He is on antibiotics. Really, he is disabled and not eating but otherwise he is doing okay. cc: Janki Yuen MD
[2018-07-13] MEDS: ZOSYN 3.375 GM in NS 50 ML IV SCH ×3 (01:56→14:45)
[2018-07-13] MEDS: DUONEB (A & A) INH SCH ×7 (03:05→23:11)
[2018-07-13] MEDS: DILAUDID IV PRN ×4 (04:23→18:36)
[2018-07-13] MEDS: ANORO ELLIPTA 62.5-25 MCG INH INH SCH (07:46)
[2018-07-13] MEDS: CLINIMIX E 4.25%-5% SOLUTION 1,000 ML IV SCH ×2 (07:53→17:49)
[2018-07-13] MEDS: FLOMAX PO SCH ×2 (08:08→20:28)
[2018-07-13] MEDS: NIASPAN PO SCH (08:08)
[2018-07-13] MEDS: CYMBALTA PO SCH ×2 (08:08→20:29)
[2018-07-13] MEDS ORDERED: ZOSYN ONE (10:07)
--- NOTE | 2018-07-13 11:40 | GENERAL SURGERY PROGRESS NOTE ---
DATE: 07/13/2018 SUBJECTIVE: No fevers, no tachycardia. Wound is flat. He tolerated his ANGIE removal yesterday with no increased swelling, but continues to have drainage from the remaining tube. No fevers. White count is 10. He is remains very debilitated and not really eating much. ASSESSMENT AND PLAN: A 68-year-old gentleman with left retroperitoneal hematoma. I see no signs of ongoing local infection. Will remove his remaining drain tomorrow after monitoring the output today. Will remove his Sutherland as well. Otherwise, physical disability and nutrition are the main issues. cc: Janki Yuen MD
--- NOTE | 2018-07-13 14:11 | PROGRESS NOTE ---
DATE: 07/13/2018 SUBJECTIVE: Overnight, one of his drains was removed. He did not have any acute overnight events. He has not been eating at all since last 2 days now. OBJECTIVE: Vital signs: Temperature 97.3, pulse 85 per minute, blood pressure 126/65. He has been saturating 89 to 90% on room air. Input and output suggest he has -6 L since admission. General: On physical examination, does not appear in acute distress. ENT: Oral cavity is dry. Lungs: Air entry bilaterally equal. Distant appearing lung sounds. No wheeze , rhonchi, crackles. Cardiovascular: S1, S2 normal. No murmur, rub, or gallop. Abdomen: Soft, nontender. Extremities: No lower extremity edema. Left groin has sutures, and the site appears not inflamed. There is an external drain coming out which is draining serosanguineous discharge. LABORATORIES: No new labs today. We will get CBC and BMP tomorrow. ASSESSMENT AND PLAN: 1. Acute Left iliopsoas hematoma due to intravenous heparin, which had developed at [facility], which later on developed into acute abscess at rehab facility, now status post surgical drainage in [facility]. The drain output has been decreasing and is non purulent. Looks like his abscess has resolved. Surgery planning to remove the remaining drain tomorrow. I will stop antibiotics today. 2. Acute hypoxic respiratory failure with SpO2 91% on room air, likely in the setting of chronic obstructive pulmonary disease, as documented in [facility] discharge summary, plus right-sided pulmonary embolism. Continue nasal cannula to maintain saturation more than 90%. 3. Acute Left lower extremity extensive deep vein thrombosis with acute right- sided pulmonary embolism, (diagnosed at [facility]) status post inferior vena cava filter in June 2018. I will resume his Eliquis starting tomorrow once the drain comes out. 4. Bilateral lower lobe pneumonia and urinary tract infection because of Enterobacter during admission, likely now has resolved. 5. Transaminitis, now resolved. 6. History of left upper lung nodule suspicious of malignancy (as per [facility] records). He should follow up with the lung doctor outpatient. 7. History of severe peripheral artery disease with occlusion of left-sided common iliac artery thrombosis and with good collaterals during [facility] where he would eventually need surgical intervention in the future. 8. Acute Urinary retention. Continue Sutherland catheter. Urology on board. Continue tamsulosin. 9. Nutrition. The patient continues to have poor p.o. intake and is receiving intravenous nutrition. The plan is to discontinue intravenous nutrition in the near future and encourage him to eat by mouth. Plan of care was discussed with the patient. All of his questions have been answered. Yesterday, I had discussed his course extensively with . cc: Fitz Concepcion MD MTDD
[2018-07-13] MEDS: MARINOL PO SCH ×2 (14:56→20:28)
--- NOTE | 2018-07-13 17:18 | PULMONOLOGY PROGRESS NOTE ---
DATE: 07/13/2018 SUBJECTIVE: The patient is awake, alert and conversant. He is without cough or sputum production. OBJECTIVE: Vital signs: The patient is afebrile. Blood pressure 112/70, heart rate 99, respiratory rate 16 and oxygen saturation 100% on room air. HEENT: Pupils are equal and reactive. Oropharynx is clear. Neck: Supple. Chest: Reveals good air entry bilaterally without wheezing or rhonchi. Cardiac: S1, S2. Abdomen: Soft. Extremities: Without edema. LABORATORY: No new white blood count. No new chemistries. IMPRESSION: 68-year-old with pneumonia which has resolved, hypoxemia which has resolved, pulmonary embolism at an outside hospital, history of solitary pulmonary nodule identified at an outside hospital without evidence of nodule at this hospital, who is being treated for left groin abscess. RECOMMENDATIONS: 1. Follow up CT scan for tomorrow to reevaluate pulmonary nodule. 2. Continue treatment for groin abscess. cc: Basilio Bloom MD
[2018-07-13] MEDS: LIPOSYN 20% 250 ML IV SCH (17:49)
[2018-07-13] MEDS: SODIUM CHLORIDE 0.9% INJ SCH (17:50)
[2018-07-13] MEDS: PROTONIX IV SCH (17:50)
[2018-07-13] MEDS: SEROQUEL PO SCH (20:29)
[2018-07-13] MEDS: HEPARIN SUBQ SCH (20:29)
[2018-07-14] MEDS: DUONEB (A & A) INH SCH ×6 (03:43→23:14)
[2018-07-14] MEDS: HEPARIN SUBQ SCH (04:19)
[2018-07-14] MEDS: DILAUDID IV PRN ×5 (04:19→21:24)
[2018-07-14] MEDS: CLINIMIX E 4.25%-5% SOLUTION 1,000 ML IV SCH ×2 (04:20→17:10)
[2018-07-14 06:02] LABS: BASO# 0.06 X1000 (0.0-0.2); BASO% 0.6 % (0.0-0.8); EOS# 0.23 X1000 (0.0-0.7); EOS% 2.2 % (0.0-10.0); HEMATOCRIT 33.5 % (42.0-52.0); HEMOGLOBIN 10.3 g/dL (14.0-18.0); IMM GRAN# 0.04 X1000 (0.0-0.04); IMM GRAN% 0.4 % (0.0-0.5); LYMPH# 1.91 X1000 (1.2-3.4); MCH 28.8 PG (27-31); MCHC 30.7 g/dL (33-37); MCV 93.6 FL (81-99); MONO# 0.97 X1000 (0.11-0.59); MONO% 9.1 % (1.7-9.3); MPV 10.4 FL (7.4-10.4); NEUT# 7.43 X1000 (1.4-6.5); NEUT% 69.7 % (42.2-75.2); PLT 384 X1000 (130-400); RBC 3.58 XMIL (4.7-6.1); RDW 16.5 % (11.5-14.5); WBC 10.64 X1000 (4.8-10.8)
[2018-07-14 06:41] LABS: AGAP 12; BUN 21 mg/dL (8-22); CALCIUM 9.8 mg/dL (8.8-10.2); CHLORIDE 102 mmol/L (98-107); COSMO 283; CREATININE 0.9 mg/dL (0.7-1.2); ESTIMATED GFR > 60; GLUCOSE 141 mg/dL (70-104); POTASSIUM 4.6 mmol/L (3.5-5.1); SODIUM 139 mmol/L (136-145); TCO2 25 mmol/L (25-35)
[2018-07-14] MEDS: ANORO ELLIPTA 62.5-25 MCG INH INH SCH (07:35)
[2018-07-14] MEDS: MARINOL PO SCH ×2 (10:40→21:24)
[2018-07-14] MEDS: FLOMAX PO SCH ×2 (10:40→21:24)
[2018-07-14] MEDS: NIASPAN PO SCH (10:40)
[2018-07-14] MEDS: ELIQUIS PO SCH ×2 (10:41→21:24)
[2018-07-14] MEDS: CYMBALTA PO SCH ×2 (10:41→21:24)
--- NOTE | 2018-07-14 11:46 | GENERAL SURGERY PROGRESS NOTE ---
DATE: 07/14/2018 SUBJECTIVE: No events. OBJECTIVE: No fevers. No tachycardia. Blood pressure 134/89. His groin is flat. ANGIE drain is serosanguineous. Hematocrit stable at 33, white count 10. ASSESSMENT AND PLAN: A 68-year-old gentleman with infected hematoma in the left groin. Dr. Bloom is following. The plan is to restart his anticoagulation. Will keep his drain to make sure we do not have increasing output, but if he tolerates this, we will remove his drain. cc: Janki Yuen MD
--- NOTE | 2018-07-14 12:11 | Diag Imaging Result Doc PS360 ---
EXAM: CT THORAX W/O CONTRAST INDICATION: lung mass TECHNIQUE: This exam was performed using automated exposure control, adjustment of mA or kV according to patient size, and/or use of iterative reconstruction technique. COMPARISON: None. FINDINGS: There is moderate centrilobular emphysema with an apical predominance. At the left lung apex, there is a spiculated mass that measures approximately 2.3 x 1.8 cm axially that is highly suspicious for neoplasm. There are a few other tiny scattered nodules bilaterally that are much less suspicious. For instance, there is a 4.5 mm pleural-based nodule in the inferior right upper lobe abutting the fissure. There is a dense airspace consolidation in the right lower lobe at the right lung base consistent with pneumonia. There is mild subsegmental atelectasis at the left lung base. Limited views of the upper abdomen reveals several calcified stones in the gallbladder lumen. There is a heterogeneous low dense mass in the right hepatic lobe at the dome of the liver that measures up to 5.2 x 4.6 cm. There is a second more poorly defined low dense nodule in the right hepatic lobe more inferiorly on image 105 series 2 that measures up to 2.3 cm in the greatest axial dimension. The larger lesion at the dome of the liver in particular is suspicious for neoplasm. IMPRESSION: 1.Moderate pulmonary emphysema. 2.Suspicious spiculated mass in the left upper lobe near the apex as described. 3.Right lower lobe pneumonia. 4.Heterogeneous low attenuating mass in the dome of the liver and smaller low dense nodule more inferiorly in the right hepatic lobe as described above. 5.Other external/nonacute findings detailed above. Electronically signed by Dino Kevin 07/14/2018 12:09 PM
[2018-07-14] MEDS ORDERED: VANCOMYCIN IV PER PHARMACY MISC SCH (15:45)
[2018-07-14] MEDS ORDERED: VANCOMYCIN 2,000 MG in NS 500 ML IV SCH (17:00)
[2018-07-14] MEDS: LIPOSYN 20% 250 ML IV SCH (17:10)
[2018-07-14] MEDS: MAXIPIME 1 GM in NS 50 ML IV SCH (17:14)
[2018-07-14] MEDS: PROTONIX IV SCH (17:14)
--- NOTE | 2018-07-14 17:29 | PROGRESS NOTE ---
DATE: 07/14/2018 Overnight no acute events. Apparently patient has not been eating a lot, in fact eating nothing. Overall today patient denies any complaints. is at bedside. Plan of care were discussed with the . Currently vitals suggests patient has been afebrile with temperature of 98 degrees, pulse of 100 per minute, blood pressure is 86/48, saturating 90 to 92 percent on 3 L nasal cannula. PHYSICAL EXAMINATION: Oral cavity very dry. Air entry bilaterally equal with inspiratory crackles right inframammary region which is decreased from previous examinations. No wheeze or rhonchi. S1, S2 normal. No murmur, rub or gallop. Abdomen is soft, scaphoid, nontender. No lower extremity edema. Left groin has sutures and site appears not infected, noninflamed. There is 1 external drain coming out which is draining blood-filled serosanguineous discharge. LABORATORIES: Data suggestive of no leukocytosis, stable hemoglobin, hematocrit and platelet count, normal electrolytes. Microbiology, no new microbiological data. ASSESSMENT AND PLAN: 1. Acute left iliopsoas retroperitoneal hematoma due to intravenous heparin use developed at [facility] which later on developed into acute abscess at rehab facility now status post surgical drainage at [facility]. The patient continues to have external drain. The output has been gradually decreasing. The plan is to do external drain in coming few days once the patient tolerates blood thinners. 2. Acute hypoxic respiratory failure because of baseline chronic obstructive pulmonary disease and emphysema, right-sided pulmonary embolism diagnosed at [facility] and right lower lobe pneumonia. Continue oxygenation to maintain saturation between 88 to 92 percent. 3. Acute left lower extremity extensive deep vein thrombosis and acute right-sided pulmonary embolism diagnosed at [facility] status post inferior vena cava filter in June 2018. Resume his Eliquis. We will remove external drain once patient tolerates Eliquis and does not have any bleeding. 4. Right lower lobe pneumonia and urinary tract infection because of Enterobacter during admission. He had received almost 2 weeks of antibiotics vancomycin and Zosyn and still has infiltrate on chest CT. I resumed his vancomycin and started him on cefepime. I will appreciate Pulmonology recommendation about duration of antibiotics. 5. History of left upper lung nodule with 2 hepatic masses with extensive history of smoking suggestive of malignancy. Pulmonology on board. I will appreciate recommendation about need for biopsy in the future and coordinating it with patient's anticoagulation. 6. History of severe peripheral artery disease with occlusion of left-sided common iliac artery thrombosis good collaterals diagnosed at [facility] in June 2018. Continue Eliquis. 7. Acute urinary retention, his Sutherland catheter was removed today, urology on board. Continue tamsulosin. I will have bladder scan. 8. Nutrition. The patient continues to have poor p.o. intake. He was encouraged to eat by mouth and drink. Marinol has been started. 9. Disposition. The patient remains inside the hospital until he tolerates Eliquis. If his pneumonia is getting better and he is tolerating Eliquis my plan is to discharge him to rehab sometimes next week. Plan of care was discussed with . All of her questions have been answered. cc: Fitz Concepcion MD
--- NOTE | 2018-07-14 18:03 | PULMONOLOGY PROGRESS NOTE ---
DATE: 07/14/2018 SUBJECTIVE: The patient is awake and alert. It is sometimes difficult to follow his thinking. He is not eating his meals. OBJECTIVE: Vital Signs: The patient has been afebrile for the last 24 hours. Blood pressure is 109/54, heart rate 94, respiratory rate 20, oxygen saturation 92% on 3 liters per nasal cannula. HEENT: Pupils are equal and reactive. Oropharynx appears clear. Neck: Supple. Chest: Reveals mild prolonged expiratory phase. Cardiac: S1 and S2. Abdomen: Soft. Groin lesion without significant drainage. LABORATORIES: CT scan of the thorax is reviewed. He has a 2.3 x 1.8 cm spiculated mass in the left upper lobe, worrisome for malignancy. He has several smaller nonspecific nodules present. He has bibasilar infiltrates consistent with pneumonia, right greater than left. He has a 5.2 x 4.6 cm mass in the liver and a second, less well defined 2.3 cm mass in the right hepatic lobe. Sodium is 139, potassium 4.6, chloride 102, bicarbonate 25, BUN 21, creatinine 0.9, glucose 141. White blood count is 10.6, hemoglobin 10.3, platelet count 384,000. IMPRESSION: 1. A 68-year-old with pneumonia with residual changes in the lung bases identified on CT scan. 2. History of pulmonary emboli with history of inferior vena cava filter placement. 3. Nodule/mass in the left upper lobe worrisome for malignancy with possible metastatic disease to the liver. 4. The patient has significant protein calorie malnutrition with inadequate p.o. intake. His believes he has lost approximately 60 pounds this year. RECOMMENDATIONS: 1. Check CEA level tomorrow. 2. The patient will need a biopsy of the left upper lobe or the liver. Timing of this is difficult with current clinical status. cc: Basilio Bloom MD [facility]
[2018-07-14] MEDS ORDERED: ELIQUIS PO SCH (21:00)
[2018-07-14] MEDS: SEROQUEL PO SCH (21:24)
[2018-07-15] MEDS: DILAUDID IV PRN ×6 (00:11→21:25)
[2018-07-15] MEDS: DUONEB (A & A) INH SCH ×6 (03:38→22:30)
[2018-07-15] MEDS: MAXIPIME 1 GM in NS 50 ML IV SCH ×2 (03:54→16:58)
[2018-07-15] MEDS: NIASPAN PO SCH (09:06)
[2018-07-15] MEDS: FLOMAX PO SCH ×2 (09:06→21:21)
[2018-07-15] MEDS: ELIQUIS PO SCH ×2 (09:07→21:21)
[2018-07-15] MEDS: CYMBALTA PO SCH ×2 (09:07→21:21)
[2018-07-15] MEDS: MARINOL PO SCH ×2 (09:07→21:21)
[2018-07-15] MEDS: CLINIMIX E 4.25%-5% SOLUTION 1,000 ML IV SCH ×2 (10:24→11:03)
[2018-07-15] MEDS: ANORO ELLIPTA 62.5-25 MCG INH INH SCH (11:03)
--- NOTE | 2018-07-15 14:58 | PROGRESS NOTE ---
DATE: 07/15/2018 Overnight no acute events. SUBJECTIVE: He is about to have his lunch. He does not appear in any acute distress. He is alert, but is only oriented to himself. He oftentimes appeared confused. is at bedside. Plan of care were discussed with her. All of her questions have been answered. OBJECTIVE: Vitals: Temperature 97.7 degrees, pulse 89 per minute. He was intermittently tachycardic. Blood pressure 138/59, saturating 95% on 2 L cannula. Physical examination: General: Does not appear in any acute distress. Oral cavity is very dry. No pallor, cyanosis, clubbing, or icterus. Lungs: Air entry bilaterally equal with inspiratory crackles at right inframammary region, which is significantly decreased. No wheeze or rhonchi. Heart: S1-S2 is normal. No murmur or gallop. Abdomen: Is soft, scaphoid, nontender. No lower extremity edema. Left groin has sutures of previous incision and drain. Site appears not infected. Drains have been removed. LAB DATA: No new lab data today except elevated carcinoembryonic antigen. No new microbiological data. ASSESSMENT AND PLAN: 1. Acute left iliopsoas retroperitoneal hematoma due to intravenous heparin use which had initially developed at [facility] and later on developed into an acute abscess at rehab facility, now status post surgical drainage at [facility]. Both of his surgical drains have been removed. 2. Acute hypoxic respiratory failure because of baseline COPD and emphysema. Right-sided pulmonary embolism diagnosed at [place] and right lower lobe pneumonia. Continue oxygenation to maintain saturation between 88 to 92 percent. 3. Acute left lower extremity extensive DVT and acute right side pulmonary embolism diagnosed at [facility], status post IVC filter. Continue Eliquis. I started him on 5 mg b.i.d. dose considering he might have received a few doses of Eliquis at [facility] and probably at rehab and he also had a retroperitoneal hematoma, so this was to avoid excessive bleeding. 4. Right lower lobe pneumonia and urinary tract infection because of Enterobacter during this hospitalization. He has almost received 2 weeks of antibiotics, vancomycin and Zosyn, and still has infiltrate on chest CT. I would resume his vancomycin and started him on cefepime. 5. Plan is to continue antibiotics for only a few days and stop it at the time of discharge. 6. History of left upper lung nodule with 2 hepatic masses with extensive smoking history with suspicion of malignancy, he may eventually need a biopsy of the lung lesion once he has received. We will have to coordinate anticoagulation and lung biopsy in the future. 7. History of severe peripheral artery disease with occlusion of left-sided common iliac artery thrombosis with good collaterals diagnosed at [facility]. Continue Eliquis. 8. Acute urinary retention. His Sutherland catheter was removed on 07/14/2018, currently voiding appropriately. 9. Nutrition. The patient continues to have poor p.o. intake. Continue Marinol for now. 10. Disposition. My plan is to have physical therapy evaluate him tomorrow. I expect discharge back to rehab early next week. I will discuss with Pulmonology about lung biopsy planning. Plan of care discussed with the patient and his is supposedly surrogate decision maker. All of their questions have been answered. cc: Fitz Concepcion MD
--- NOTE | 2018-07-15 15:55 | GENERAL SURGERY PROGRESS NOTE ---
DATE: 07/15/2018 SUBJECTIVE: Remains very weak. He is unable to participate with physical therapy. It takes 4 nurses to get him up and he almost fell. No fevers. OBJECTIVE: Vital signs: Pulse 95, blood pressure 128/60, oxygen saturation 97%. General: He is back on his anticoagulation. : His left groin is flat. I removed his final drain today. ASSESSMENT AND PLAN: This is a 68-year-old gentleman with left retroperitoneal hematoma. We will continue to monitor him closely. He is very debilitated, although his p.o. intake is somewhat improving. He remains very weak and is a very large gentleman which makes his rehabilitation difficult. I have encouraged him to sit up and at least dangle his feet to hopefully help strengthen them. We will continue his current management. cc: Janki Yuen MD
[2018-07-15] MEDS: SODIUM CHLORIDE 0.9% INJ SCH (16:58)
[2018-07-15] MEDS: PROTONIX IV SCH (16:58)
[2018-07-15] MEDS: LIPOSYN 20% 250 ML IV SCH (16:59)
[2018-07-15] MEDS: SEROQUEL PO SCH (21:21)
[2018-07-16] MEDS: DILAUDID IV PRN ×2 (03:08→09:04)
[2018-07-16] MEDS: MAXIPIME 1 GM in NS 50 ML IV SCH ×2 (03:08→16:44)
[2018-07-16] MEDS: DUONEB (A & A) INH SCH ×6 (03:55→22:41)
[2018-07-16 05:55] LABS: BASO# 0.03 X1000 (0.0-0.2); BASO% 0.4 % (0.0-0.8); EOS% 2.4 % (0.0-10.0); HEMOGLOBIN 9.9 g/dL (14.0-18.0); IMM GRAN# 0.06 X1000 (0.0-0.04); IMM GRAN% 0.7 % (0.0-0.5); LYMPH# 1.64 X1000 (1.2-3.4); LYMPH% 19.7 % (20.5-51.1); MCH 28.4 PG (27-31); MCV 94.6 FL (81-99); MONO# 0.76 X1000 (0.11-0.59); MONO% 9.1 % (1.7-9.3); MPV 10.3 FL (7.4-10.4); NEUT# 5.62 X1000 (1.4-6.5); NEUT% 67.7 % (42.2-75.2); PLT 356 X1000 (130-400); RBC 3.49 XMIL (4.7-6.1); RDW 16.1 % (11.5-14.5); WBC 8.31 X1000 (4.8-10.8)
[2018-07-16 06:08] LABS: INR 1.1; PROTIME 15.1 Seconds (11.0-16.0)
[2018-07-16 06:09] LABS: PTT 39.5 Seconds (22.3-41.8)
[2018-07-16] MEDS: CLINIMIX E 4.25%-5% SOLUTION 1,000 ML IV SCH (06:37)
[2018-07-16 06:41] LABS: AGAP 9; ALB/GLOB RATIO 0.7; ALBUMIN 2.8 g/dL (3.5-5.0); ALKALINE PHOSPHATASE 240 U/L (32-122); AMYLASE 32 U/L (20-200); BUN 20 mg/dL (8-22); CALCIUM 9.5 mg/dL (8.8-10.2); CHLORIDE 103 mmol/L (98-107); COSMO 287; CREATININE 1.1 mg/dL (0.7-1.2); ESTIMATED GFR > 60; GLUCOSE 146 mg/dL (70-104); GOT 20 U/L (10-34); GPT 18 U/L (10-44); POTASSIUM 4.7 mmol/L (3.5-5.1); SODIUM 141 mmol/L (136-145); TCO2 29 mmol/L (25-35); TOTAL BILIRUBIN 0.99 mg/dL (0.20-1.00)
[2018-07-16] MEDS: ANORO ELLIPTA 62.5-25 MCG INH INH SCH (08:30)
[2018-07-16] MEDS: CYMBALTA PO SCH ×2 (09:04→20:07)
[2018-07-16] MEDS: ELIQUIS PO SCH ×2 (09:04→20:07)
[2018-07-16] MEDS: FLOMAX PO SCH ×2 (09:04→20:07)
[2018-07-16] MEDS: NIASPAN PO SCH (09:04)
[2018-07-16] MEDS: MARINOL PO SCH ×2 (09:04→20:07)
--- NOTE | 2018-07-16 11:08 | GENERAL SURGERY PROGRESS NOTE ---
DATE: 07/16/2018 OBJECTIVE: Vital Signs: Mr. Mercado is afebrile. Heart rate 101, respiratory rate 16, blood pressure 113/65. General: He is lying comfortably in the bed. He does report some pain in his left leg. He is not oriented to place or time. He speaks in a confused away. Wounds: His wound looks acceptable. His left leg is viable. No ulceration is identified. LABORATORY: His white count is 8300, hemoglobin 9.9, hematocrit 33. Pro time 15, INR 1.1. BUN 20, creatinine 1.1. ASSESSMENT: He continues to convalesce from his retroperitoneal hematoma. His drains are out. His wound is looking satisfactorily. He remains poorly nourished. His mobility status is poor. He also has now a left lung lesion with possible hepatic metastases. PLAN: I do not plan any kind of revascularization to his left leg until he is better nourished, up on his feet and functional. I think before that we would need to proceed with biopsy of the left lung lesion to determine if this is malignant. This could play into whether we attempted revascularization to his leg in the future. It also may play into the family's disposition for Mr. Mercado. I will continue to follow along. cc: Romulo Bartlett MD
[2018-07-16] MEDS: NORCO-5 PO PRN ×3 (12:42→23:02)
--- NOTE | 2018-07-16 14:51 | Diag Imaging Result Doc PS360 ---
EXAM: CT HEAD W/O CONTRAST INDICATION: Acute encephalopathy. On Eliquis. TECHNIQUE: This exam was performed using automated exposure control, adjustment of mA or kV according to patient size, and/or use of iterative reconstruction technique. COMPARISON: MRI dated 07/06/2018. No prior CT head is available for comparison. FINDINGS: There is a tiny focus of low attenuation adjacent to the caudate head in the internal capsule on the left on image 25 of series 2. This could represent a small focus of white matter microangiopathy. However, no definite corresponding lesion can be identified on the recent MRI and there is no prior CT for comparison. I suppose a recent lacunar infarct is possible. There is no other evidence of acute infarct given the limitation of CT versus MRI. There is no discrete intracranial mass, mass effect, or intracranial hemorrhage. The surrounding soft tissues and bony structures are essentially unremarkable. IMPRESSION: Tiny focus of low attenuation in the internal capsule adjacent to the caudate on the left that is nonspecific but it is possible that it represents a recent lacunar infarct. Please see above discussion. The findings were discussed with the patient's nurse, Nessa Velasquez, at 07/16/2018 2:48 PM and was acknowledged. Electronically signed by Dino Kevin 07/16/2018 2:49 PM
--- NOTE | 2018-07-16 15:06 | PROGRESS NOTE ---
DATE: 07/16/2018 OVERNIGHT: No acute events. SUBJECTIVE: Patient's is at bedside. She is concerned that the patient is a little more confused today than 2 days before. The patient himself is denying any complaints, though sputum has been growing gram-negative rods and I conveyed the sputum findings to the patient. I also conveyed with the patient's that I had a discussion with the surgeon and I would hold discussion with the lung doctor about the biopsy plan. OBJECTIVE: Vital Signs: Temperature 97.7, pulse 95, blood pressure 101/50, saturating 95% on room air. PHYSICAL EXAMINATION: General: Does not appear in any acute distress. HEENT: Oral cavity is dry. No pallor, cyanosis, clubbing or icterus. Lungs: Air entry bilaterally equal. No wheeze, rhonchi or crackles. Cardiovascular: S1, S2 normal. No rub or gallop. Abdomen: Soft, scaphoid, nontender. No lower extremity edema. Left groin has sutures of previous incision and drainage. The external drains have been removed. Site appears noninfected. Neurologic: Pupils bilaterally equal, reactive to light and round. No obvious facial droop. Upper extremity he has off 4+ 10 bilateral upper, extremities lower extremity 4+ 10 on right lower extremity. He is not able to lift his left lower extremity because of pain. He has intact knee jerks on the right. I could not elicit knee jerk on the left. His biceps jerks are bilaterally intact. It is possible that he was keeping his left lower extremity stiff because of the pain. I was also informed that yesterday he received intravenous fat for nutrition more rapidly than he is supposed to. It looks like he is supposed to get it at 10 mL/h, but it looks like he got 100 mL over hour. He did not have a known high dose reaction after that. LABORATORY: Microbiology: Sputum growing gram-negative rods. Report CT scan has been ordered. Labs showing stable hemoglobin, hematocrit, platelet count. Stable electrolytes , normal kidney function. ASSESSMENT AND PLAN: 1. Acute left iliopsoas retroperitoneal hematoma due to intravenous heparin use at [facility], which later on developed into an acute abscess at rehab facility, now status post surgical drainage at [facility]. His external surgical drains have been removed. His hemoglobin is stable. 2. Acute hypoxic respiratory failure because of baseline COPD and emphysema. Right-sided pulmonary embolism diagnosed at [place] and right lower lobe pneumonia, currently breathing well on room air most of the times. 3. Acute left lower extremity extensive DVT and acute right-sided pulmonary embolism diagnosed at [place]. Continue Eliquis 5 mg b.i.d. I started him at lower dose considering he has had intra-abdominal bleeding in the past. The usual dose would be 10 mg b.i.d. for 7 days, and then 5 mg b.i.d. 4. Right lower lobe pneumonia and urinary tract infection because of Enterobacter during this hospitalization. Follow up final sputum culture. He had previously received two weeks of vancomycin and Zosyn. Continue intravenous cefepime now considering his sputum is still positive and he had infiltrate residual on chest CT. 5. Acute encephalopathy. Patient has been confused during hospital admission, which was thought to be related to hospital acquired delirium. Previous CT scan and MRI were unremarkable on today's physical examination. His confusion looks worse and patient's is also concerned about it. On neurological examination, I could not elicit knee jerk on the left appropriately and he could not move his left lower extremity. It is possible these were due to pain in the left lower extremity and he was keeping his leg stiff, but I will repeat CT scan to rule out any intracranial bleed secondary to use of Eliquis. 6. Left upper lobe of lung nodule with two hepatic masses with extensive smoking history suspicious of malignancy. I will appreciate discussion with Pulmonology about plan of lung biopsy as we may have to have interruption of anticoagulation based on that. 7. History of severe peripheral artery disease with occlusion of left-sided common iliac artery and thrombosis with good collaterals diagnosed at [facility]. Continue Eliquis for now. Surgical team on board. Further intervention are held until his acute issues, especially lung biopsy, are pending. 8. Acute urinary retention status post Sutherland catheter removed on July 14. 9. Nutrition. I stopped intravenous nutrition as he has been on that for a long time and considering the risk associated with it. Continue Marinol for now. I encouraged the patient's and patient's to eat by mouth as much as possible as we come towards discharge planning. 10. Disposition: I will await Pulmonology recommendation about timing of lung biopsy and accordingly I will consider discharge into rehab in the near future. By that time I will also have sputum culture results back that will guide p.o. antibiotic therapy. Plan of care was discussed with the patient's . All of their questions have been answered. cc: Fitz Concepcion MD [facility]
[2018-07-16] MEDS: PROTONIX IV SCH (16:44)
[2018-07-16] MEDS: SODIUM CHLORIDE 0.9% INJ SCH (16:44)
[2018-07-16] MEDS: SEROQUEL PO SCH (20:07)
[2018-07-17] MEDS: DUONEB (A & A) INH SCH ×6 (03:15→23:13)
[2018-07-17] MEDS: MAXIPIME 1 GM in NS 50 ML IV SCH ×2 (04:24→16:36)
[2018-07-17] MEDS: NORCO-5 PO PRN ×4 (05:07→21:42)
[2018-07-17 06:47] LABS: AGAP 13; BUN 16 mg/dL (8-22); CALCIUM 9.2 mg/dL (8.8-10.2); CHLORIDE 102 mmol/L (98-107); COSMO 286; ESTIMATED GFR > 60; GLUCOSE 101 mg/dL (70-104); POTASSIUM 3.7 mmol/L (3.5-5.1); SODIUM 143 mmol/L (136-145); TCO2 28 mmol/L (25-35)
[2018-07-17] MEDS ORDERED: LIPITOR PO ONE (07:24)
[2018-07-17] MEDS: MARINOL PO SCH ×2 (10:48→21:39)
[2018-07-17] MEDS: CYMBALTA PO SCH ×2 (10:48→21:37)
[2018-07-17] MEDS: FLOMAX PO SCH ×2 (10:49→21:38)
[2018-07-17] MEDS: NIASPAN PO SCH (10:49)
--- NOTE | 2018-07-17 11:04 | GENERAL SURGERY PROGRESS NOTE ---
DATE: 07/17/2018 SUBJECTIVE: It is 10:45 in the morning. Mr. Mercado is sleeping, but easily aroused. His clinical situation appears the same. He still has a poor appetite. His wound looks the same. Chemistry remains unchanged. In view of his left pulmonary mass and liver masses, I think that it would be important to proceed with biopsy to determine if this represents metastatic lung cancer or not. I will discuss with his family when they are available. In view of that, I think we should stop his anticoagulation in order to proceed with the biopsy. cc: Romulo Bartlett MD
[2018-07-17] MEDS: HEPARIN SUBQ SCH ×3 (11:32→21:37)
--- NOTE | 2018-07-17 12:21 | PROGRESS NOTE ---
DATE: 07/17/2018 OVERNIGHT EVENTS: Overnight, no acute events. SUBJECTIVE: The patient appears to be very drowsy. He says he wants to sleep. I stopped his Eliquis today morning in anticipation of future biopsy as well as while we await MRI to evaluate whether he has any stroke or not. OBJECTIVE: Vital Signs: Suggest temperature of 97.8 degrees, pulse 95 per minute, blood pressure 139/52, saturating 97% on room air. Physical Examination: General: As stated, the patient is drowsy and wants to sleep. Does not follow commands to allow proper physical examination. Respiratory: His air entry is bilaterally equal. No wheeze, rhonchi, crackles. Cardiovascular: S1 and S2 normal. No murmur or gallop. Genitourinary: His left groin site, sutures appear intact without any discharge. Extremities: He does not have lower extremity edema. Neurologic: I could not perform a neurological examination. I will try and attempt to do it later. Labs: Suggestive of normal electrolytes, normal kidney function. Microbiology: Sputum culture has been growing Enterobacter cloacae which is sensitive to cefepime and levofloxacin. Reports: CT scan of head yesterday had suggested a tiny focus of low attenuation in the left internal capsule which may or may not represent recent lacunar infarct. MRI of the brain with and without contrast is pending. ASSESSMENT AND PLAN: 1. Acute left iliopsoas retroperitoneal hematoma due to intravenous heparin use at [facility] which later on developed into acute abscess at rehab, now status post surgical drainage at [facility]. His external drains have been removed since 07/15/2018. His hemoglobin is stable. 2. Acute hypoxic respiratory failure because of baseline chronic obstructive pulmonary disease and emphysema, right-sided pulmonary emboli diagnosed at [place], and right lower lobe pneumonia, now resolved. 3. Acute left lower extremity extensive deep venous thrombosis and acute right-sided pulmonary embolism diagnosed at [place]. I stopped Eliquis. The last dose was 07/16/2018 in the evening in anticipation of possible lung or liver biopsy in the future. Also, he has a low attenuating lesion in the brain suspicious of stroke so until I get an MRI, I would like to hold therapeutic anticoagulation. Depending on his course, I might consider starting intravenous heparin drip in the future. 4. Right lower lobe pneumonia because of Enterobacter cloacae. Previously, he was status post vancomycin and Zosyn. Continue intravenous cefepime for now and then will change it to oral levofloxacin. 5. Acute encephalopathy. It could be hospital-acquired delirium. I will await MRI to see if a new cerebrovascular accident could be contributing to it. 6. Left upper lobe lung nodule with two hepatic masses with extensive smoking history, suspicious of malignancy. I will await pulmonology recommendation about the biopsy plan. I am interrupting anticoagulation until we make the definitive plan. 7. History of severe peripheral artery disease with occlusion of left-sided common iliac artery and thrombosis with good collaterals, diagnosed at [facility]. Continue deep venous thrombosis prophylaxis dose of heparin for now. 8. Acute urinary retention, status post Sutherland catheter removed on July 14. Now voiding normally. 9. Nutrition. We will continue oral nutrition as tolerated. Continue Marinol for increasing appetite. 10. Disposition. The patient remains inside the hospital. My plan is to hold anticoagulation until I get the MRI of his brain. Until then, I will continue heparin subcutaneously for deep venous thrombosis prophylaxis. After the MRI, I might start him on a heparin drip depending on the biopsy plan. I will hold Eliquis until we biopsy his lung or liver. Plan was discussed with the patient's yesterday. I will again go and discuss with the patient's today. cc: Fitz Concepcion MD
[2018-07-17] MEDS: PROTONIX IV SCH (16:37)
[2018-07-17] MEDS: SODIUM CHLORIDE 0.9% INJ SCH (16:37)
--- NOTE | 2018-07-17 20:27 | PULMONOLOGY PROGRESS NOTE ---
DATE: 07/17/2018 NO DICTATION cc: Basilio Bloom MD
--- NOTE | 2018-07-17 20:37 | PULMONOLOGY PROGRESS NOTE ---
DATE: 07/17/2018 SUBJECTIVE: The patient has a slightly flat affect. He is awake, alert and conversant. It is sometimes difficult to follow his reasoning. OBJECTIVE: Vital Signs: The patient has been afebrile for the last 24 hours. Blood pressure 141/64, heart rate 94, respiratory rate 16, oxygen saturation 100%. HEENT: Pupils are equal and reactive. Oropharynx is clear. Neck: Supple. Chest: Reveals good air entry bilaterally. Abdomen: Soft without hepatosplenomegaly. Extremities: Unchanged. LABORATORIES: Sodium is 143, potassium 3.7, chloride 102, bicarbonate 28, BUN 16, creatinine 1.0. Head CT yesterday revealed tiny focus of low attenuation in the internal capsule, which is a subtle change that may represent a recent lacunar infarct. IMPRESSION: A 68-year-old with pneumonia, history of pulmonary emboli with inferior vena cava placement with mass in the left upper lobe and masses in the liver worrisome for metastatic disease, and severely reduced p.o. intake with significant weight loss and protein calorie malnutrition. The case was discussed with Dr. Romulo Bartlett. We have reached a consensus that we should pursue evaluation of the masses. A biopsy of the liver is preferred because this would establish metastatic disease if malignancy is identified. If malignancy is not identified in the liver, he would still be a poor candidate for a lung resection. RECOMMENDATIONS: 1. Continue to hold anticoagulation. 2. Discuss the case with radiology tomorrow about biopsy of the liver in the next few days. cc: Basilio Bloom MD
[2018-07-17] MEDS: SEROQUEL PO SCH (21:38)
[2018-07-18] MEDS: DUONEB (A & A) INH SCH ×5 (03:56→19:25)
[2018-07-18] MEDS: MAXIPIME 1 GM in NS 50 ML IV SCH ×2 (03:57→15:59)
[2018-07-18] MEDS: NORCO-5 PO PRN ×5 (04:02→21:54)
[2018-07-18] MEDS: HEPARIN SUBQ SCH ×3 (04:45→12:47)
[2018-07-18 06:25] LABS: BASO# 0.06 X1000 (0.0-0.2); BASO% 0.8 % (0.0-0.8); EOS# 0.19 X1000 (0.0-0.7); EOS% 2.7 % (0.0-10.0); HEMATOCRIT 33.1 % (42.0-52.0); HEMOGLOBIN 10.1 g/dL (14.0-18.0); IMM GRAN# 0.04 X1000 (0.0-0.04); IMM GRAN% 0.6 % (0.0-0.5); LYMPH# 1.84 X1000 (1.2-3.4); MCH 28.3 PG (27-31); MCHC 30.5 g/dL (33-37); MCV 92.7 FL (81-99); MONO# 0.72 X1000 (0.11-0.59); MONO% 10.2 % (1.7-9.3); MPV 10.4 FL (7.4-10.4); NEUT# 4.24 X1000 (1.4-6.5); NEUT% 59.7 % (42.2-75.2); PLT 355 X1000 (130-400); RBC 3.57 XMIL (4.7-6.1); RDW 15.9 % (11.5-14.5); WBC 7.09 X1000 (4.8-10.8)
[2018-07-18 06:37] LABS: BASO 4 % (0-1); EOS 10 % (1-10); LYMPHS 16 % (21-51); MONO 14 % (1-9); SEGS 56 % (42-75)
--- NOTE | 2018-07-18 07:08 | EKG Report ---
Test Performed on : 07/17/2018 11:17:28 AM Test Reason : Rule out Atrial fibrillation Blood Pressure : / mmHG Vent. Rate : 093 BPM Atrial Rate : 093 BPM P-R Int : 222 ms QRS Dur : 098 ms QT Int : 368 ms P-R-T Axes : 068 023 067 degrees QTc Int : 457 ms Sinus rhythm. with 1st degree AV block. Nonspecific ST abnormality Abnormal ECG When compared with ECG of 30-JUN-2018 16:18, (Unconfirmed) premature atrial complexes. are no longer present CO interval has increased Confirmed by Mathew REES, Eze Ace ([id number]) on 07/18/2018 5:21:26 PM
[2018-07-18] MEDS: ANORO ELLIPTA 62.5-25 MCG INH INH SCH (08:19)
--- NOTE | 2018-07-18 09:43 | Diag Imaging Result Doc PS360 ---
EXAM: MRI BRAIN W/WO CONTRAST HISTORY: Hypoattenuating lesion in left internal capsule TECHNIQUE: MRI brain with and without contrast. Axial, sagittal, and coronal images obtained in multiple sequences. These are followed by post contrasted axial and coronal images. COMPARISON: 07/06/[address] from 07/16/2018 FINDINGS: No recent infarct. No abnormality in the area of concern on the recent CT. There are chronic microvascular ischemic changes. No mass or midline shift. No enhancing lesion on the post contrasted images. No hydrocephalus. Normal orbits. No epidural or subdural fluid collection. Minimal fluid in the mastoid sinuses. IMPRESSION: No recent infarct. Electronically signed by Jostin Santos 07/18/2018 9:41 AM
[2018-07-18] MEDS: FLOMAX PO SCH ×2 (10:10→21:55)
[2018-07-18] MEDS: NIASPAN PO SCH (10:10)
[2018-07-18] MEDS: MARINOL PO SCH ×2 (10:10→21:54)
[2018-07-18] MEDS: PROTONIX IV SCH (16:04)
[2018-07-18] MEDS: MIRALAX PO SCH (16:40)
[2018-07-18] MEDS: CLINIMIX E 4.25%-5% SOLUTION 1,000 ML IV SCH (16:40)
--- NOTE | 2018-07-18 19:32 | PROGRESS NOTE ---
DATE: 07/18/2018 OVERNIGHT: No acute events. He got his MRI of the brain which did not detect any acute strokes. SUBJECTIVE: He appears much more alert and oriented today. Denies any complaints. He has been eating only bites. The patient's is at bedside. OBJECTIVE: Vital Signs: Temperature 97.7, pulse 95 per minute, blood pressure 152/61, saturating 99% on room air. PHYSICAL EXAMINATION: General: Oral cavity is very dry. Lungs: Air entry bilaterally equal. No wheezes, rhonchi, crackles. Cardiovascular: S1, S2 normal. No murmur, rub or gallop. Abdomen: Soft, nontender. He does not have a urine catheter. No lower extremity edema. Left groin site there are sutures of previous incision and drainage. There is also what appears to be a wound gaping and sutures might have cut through and there is mild erythema, but there is no pus discharge. There is mucoid discharge around previous drain site. Input and Output: No new input and output data. LABORATORY: Microbiology: Previously sputum culture was growing Enterobacter cloacae. IMAGING: Brain MRI as mentioned did not detect any recent infarct. There are chronic microvascular ischemic changes. ASSESSMENT AND PLAN: 1. Acute left iliopsoas retroperitoneal hematoma due to intravenous heparin use at [facility]. The patient later on developed into acute abscess at rehab, now status post surgical drainage with drain at [facility]. His drains have been removed. Surgery on board. That appears to be some wound gaping; however, no signs of pus coming out. 2. Acute hypoxic respiratory failure because of baseline COPD and emphysema, right sided lung pulmonary emboli diagnosed at [place] and right lower lobe pneumonia, now resolved. Patient is breathing well on room air. 3. Acute left lower extremity extensive DVT and acute right-sided pulmonary embolism diagnosed at [place] in June 2018. Hold Eliquis, last dose was 07/16/2018 evening time. After his liver biopsy I would consider restarting him back on anticoagulation, possibly enoxaparin. 4. Right lower lobe pneumonia because of Enterobacter cloacae. He was previously on vancomycin and Zosyn. Continue cefepime for now. Once he is able to be discharged at that time I will change it to p.o. levofloxacin. 5. Acute encephalopathy, likely related to hospital acquired delirium. CT scan had a defect in left internal capsule which is not detectable on MRI, so likelihood of CVA is has been ruled out. 6. Left upper lobe lung nodule with two hepatic masses with extensive smoking history, suspicious of malignancy. I have placed ultrasound liver biopsy results after pulmonology and hematology consultation. I have not been able to talk with the radiologist on the phone as of yet, but the ultrasound biopsy result is placed. I have held all forms of anticoagulation. His last dose of Eliquis was on 07/16/2018 evening time. 7. History of severe peripheral artery disease with occlusion of left common iliac artery and thrombosis with good collaterals diagnosed at [facility]. Dr. Bartlett on board. Currently, he is not planning any intervention for now. 8. Acute urinary retention status post [place] catheter removed on July 14, now voiding normally. 9. Nutrition. Continue dronabinol. He was previously on intravenous nutrition, which I had held for 48 hours; however, he still is not eating, so I will resume that. 10. Disposition: Patient remains inside the hospital. The plan is to have him get liver biopsy. After that we will start him back on anticoagulation for left lower extremity extensive DVT though he is status post IVC filter and also right upper lobe pulmonary emboli which were diagnosed at [facility]. After that he was stable. My plan will be to discharge him on p.o. antibiotics and then he should follow up with oncologist and vascular surgeon as an outpatient. Plan of care has been discussed with the patient's at bedside, who is a surrogate decision maker. cc: Fitz Concepcion MD
[2018-07-18] MEDS: SEROQUEL PO SCH (21:55)
[2018-07-18] MEDS: CYMBALTA PO SCH (21:55)
[2018-07-19] MEDS: NORCO-5 PO PRN ×2 (03:28→11:02)
[2018-07-19] MEDS: CLINIMIX E 4.25%-5% SOLUTION 1,000 ML IV SCH ×3 (03:29→21:03)
[2018-07-19] MEDS: MAXIPIME 1 GM in NS 50 ML IV SCH ×2 (03:29→16:06)
[2018-07-19] MEDS: DUONEB (A & A) INH SCH ×7 (04:05→23:05)
--- NOTE | 2018-07-19 04:05 | GENERAL SURGERY PROGRESS NOTE ---
DATE: 07/18/2018 TIME: 4:40 p.m. SUBJECTIVE: Braeden is more alert and oriented today. He is actually speaking with some reason. He understands that he has a mass in his lung and spots on his liver that will require biopsy. He is afebrile. Hemodynamic are okay. Wound is healing. He did eat some today. ASSESSMENT: 1. Left leg ischemia. The leg is viable. No intervention for his left leg until his wound completely heals and he is nourished better. 2. Left lung mass with possible liver metastases. We are awaiting biopsy by the radiologist to determine our path forward. cc: Romulo Bartlett MD
--- NOTE | 2018-07-19 04:25 | HEMO/ONC CONSULTATION ---
DATE: 07/18/2018 CONSULTATION REQUESTED BY: The hospitalist service. REASON FOR CONSULTATION: Consultation is for her left upper lobe mass and liver masses. HISTORY OF PRESENT ILLNESS: Mr Mercado is a 68-year-old male, who presented to the hospital on 06/30/2018 with a DVT. It appears that the patient actually had been to [facility] earlier for a DVT admission, and actually had an IVC filter placed. He was not on anticoagulation at the time that he presented to [facility]. It was thought to be because of the development of a hematoma. It does seem that the patient and his family are poor historians. He did develop an abscess on his thigh as well, which has been addressed since he has been here. During his hospitalization, he has had scans done, and has been found to have some nonspecific hypodense lesions within the liver, as well as a suspicious spiculated mass in the left upper lobe near the apex in the lung. Currently, the patient is waiting to have a liver biopsy for further evaluation. Currently, he has no acute issues. PAST MEDICAL HISTORY: 1. Coronary artery disease. 2. Peripheral artery disease. 3. Hyperlipidemia. PAST SURGICAL HISTORY: 1. Status post inferior vena cava filter placement recently, within the last couple months. 2. Appendectomy. 3. Tonsillectomy. 4. Carotid endarterectomy. SOCIAL HISTORY: The patient is a heavy smoker, and smokes about 3 to 4 packs a day for at least the last 25 years. He denies any alcohol or illicit drug use. FAMILY HISTORY: Positive for CAD, as well as peripheral vascular disease. REVIEW OF SYSTEMS: A 12-point review of systems has been completed, and is negative, except for expressed in the HPI. PHYSICAL EXAMINATION: Vital Signs: Temperature 97.5 degrees, heart rate 95, respirations 16, blood pressure 129/62, oxygen saturation 91% on room air. General: This is a well-nourished, well-developed male, who is lying in the hospital bed. He is in no acute distress currently. Head: Normocephalic, atraumatic. Eyes: Pupils equal, round, and reactive. Ears, Nose, Throat, Neck, and Mouth: Oral mucosa is normal. Gross auditory acuity is intact. Cardiovascular: S1-S2 heard. No murmurs, gallops, or rubs appreciated. Respiratory: Chest is clear. No respiratory effort. Gastrointestinal: Abdomen is soft, with positive bowel sounds. Musculoskeletal: No bony abnormalities. Extremities: No swelling noted. Neurologic: The patient is alert and oriented. LABS AND STUDIES: White blood cells 7.09, hemoglobin 10.1, hematocrit 33.1, platelet count 355,000. Sodium 140, potassium 3.7, chloride 102, CO2 28, BUN 16, creatinine 1.0, glucose 101. CA is 6.8. Scans as per above in the HPI. He also has had a brain MRI, to follow up a head CT that showed a possible CVA. The brain MRI, however, says no recent infarct. ASSESSMENT AND PLAN: 1. Lung and liver masses. We recommended the patient proceed with liver biopsy. Discussed with the patient that we do need the biopsy for a definitive diagnosis. We will follow up on the pathology once it becomes available. We will discuss further treatment at that time. We will also go ahead and check an LDH, which I do not believe has been done quite yet. 2. Pulmonary thromboendarterectomy /deep venous thrombosis. The patient has an IVC filter in place. He is not currently on anticoagulation, due to a pending liver biopsy. We would recommend that the patient be started on full dose Lovenox, that would be 1 mg/kg q.12 hours, as soon as he is able after his liver biopsy. 3. Acute left iliopsoas retroperitoneal hematoma due to intravenous heparin use at [facility], that eventually developed into an acute abscess. He is status post drainage at [facility]. It appears that his levels are stable. He has no active bleeding currently. 4. Acute hypoxic respiratory failure. This has resolved. He did have a right lower lobe pneumonia, and he has a right-sided pulmonary embolus. Thank you for consulting us on Mr. Mercado. We will continue to follow along and adjust our treatment plan per his hospital course. Dictated by ZAHRA Umaña for Shannan Rogers MD cc: Shannan Rogers MD I have seen and examined the patient and the above note reflects my history, physical , and assessment and plan. Shannan Rogers MD [facility]OSPITALTejal
[2018-07-19 06:24] LABS: AGAP 10; ALB/GLOB RATIO 0.6; ALBUMIN 2.9 g/dL (3.5-5.0); ALKALINE PHOSPHATASE 186 U/L (32-122); BUN 12 mg/dL (8-22); CALCIUM 9.4 mg/dL (8.8-10.2); CHLORIDE 100 mmol/L (98-107); COSMO 277; CREATININE 0.8 mg/dL (0.7-1.2); ESTIMATED GFR > 60; GLUCOSE 127 mg/dL (70-104); GOT 20 U/L (10-34); GPT 19 U/L (10-44); MAGNESIUM 2.1 mg/dL (1.5-2.7); PHOSPHORUS 3.1 mg/dL (2.7-4.5); POTASSIUM 3.4 mmol/L (3.5-5.1); PREALBUMIN 10.4 mg/dL (20-40); SODIUM 138 mmol/L (136-145); TCO2 28 mmol/L (25-35); TOTAL BILIRUBIN 1.19 mg/dL (0.20-1.00); TOTAL PROTEIN 7.5 g/dL (6.3-8.3)
[2018-07-19 06:26] LABS: INR 0.99; PROTIME 13.9 Seconds (11.0-16.0)
[2018-07-19 06:27] LABS: PTT 37.9 Seconds (22.3-41.8)
--- NOTE | 2018-07-19 07:31 | PULMONOLOGY PROGRESS NOTE ---
DATE: 07/18/2018 SUBJECTIVE: The patient appears to be in better spirits this evening. The family reports he is making jokes with them. OBJECTIVE: Vital Signs: The patient has been afebrile for the last 24 hours. Blood pressure 142/67, heart rate 96, respiratory rate 20, oxygen saturation 100% on room air. HEENT: Pupils are equal and reactive. Oropharynx is clear. Neck: Supple. Chest: Reveals crackles at the right base. Cardiac: S1 and S2. Abdomen: Soft and without hepatosplenomegaly. Extremities: Without edema. LABORATORY DATA: White blood count 7.09, hemoglobin 10.1, platelet count 355,000. IMPRESSION: A 68-year-old with bibasilar pneumonia, history of pulmonary emboli with recent inferior vena cava placement, mass in the left upper lobe with masses in the liver worrisome for metastatic disease. The patient has had significant weight loss and is clinically significantly debilitated. Current plan is to pursue biopsy of the liver to see if this represents metastatic disease at which point the lung would not need a biopsy. If biopsy of the liver is negative, then a lung biopsy would be recommended. His anticoagulation is currently on hold for possible liver biopsy. RECOMMENDATIONS: 1. Agree with holding anticoagulation as you are doing. 2. Agree with biopsy of the liver as outlined above. cc: Basilio Bloom MD
--- NOTE | 2018-07-19 10:27 | Diag Imaging Result Doc PS360 ---
EXAM: CT THORAX W/O CONTRAST INDICATION: mass TECHNIQUE: This exam was performed using automated exposure control, adjustment of mA or kV according to patient size, and/or use of iterative reconstruction technique. COMPARISON: 07/14/2018 FINDINGS: Note that this limited unenhanced study was obtained for prebiopsy imaging prior to a scheduled CT-guided liver biopsy. However, the suspicious dominant lesion is located high in the dome of the liver. After repositioning several times, it was determined that there was no satisfactory window for biopsy. Due to the location of the lesion, it could not be reached without violating the lung or the mediastinum and is not considered amenable to CT-guided biopsy at this time. As such, the procedure was canceled. It is unclear if a much smaller lesion more inferiorly is related to the larger suspicious mass. Both lesions are stable. There has been interval improvement of the consolidation in the right lung lower lobe that was seen on the previous study. Otherwise, the lung bases and the upper abdomen are essentially stable. IMPRESSION: 1.Suspicious mass at the dome of the liver seen on the previous study does not appear to be amenable to CT-guided biopsy currently. Continued surveillance is recommended. PET scan also be helpful. 2.Interval improvement of right lower lobe pneumonia. Electronically signed by Dino Kevin 07/19/2018 10:25 AM
[2018-07-19] MEDS: ANORO ELLIPTA 62.5-25 MCG INH INH SCH (10:47)
[2018-07-19] MEDS: MARINOL PO SCH ×2 (11:03→21:03)
[2018-07-19] MEDS: FLOMAX PO SCH ×2 (11:03→21:03)
[2018-07-19] MEDS: NIASPAN PO SCH (11:03)
[2018-07-19] MEDS: MIRALAX PO SCH (11:05)
[2018-07-19] MEDS: NORCO-10 PO PRN ×3 (13:11→21:02)
--- NOTE | 2018-07-19 15:53 | PROGRESS NOTE ---
DATE: 07/19/2018 INTERVAL HISTORY: Patient with poor p.o. intake so far. Remains globally weak , especially in the left leg, which has been affected by a clot. Long discussion with patient regarding goals of care. He went for a liver biopsy this morning but it was unable to be performed because of the placement of the lesion. Discussed with patient that for improvement with rehab and long-term prognosis he has to eat. Discussed limiting factors to his diet. He denies nausea. He denies early satiety. He states that he simply has no appetite. Discussed with patient that he really has to eat or the next step is a PEG tube. The patient stated that he would try to eat better, but also stated that he would not consider PEG tube or other long-term nutrition replacement. On further discussion with the patient, he stated that he is considering hospice. Will ask hospice to speak to the patient. If he elects not to go on hospice, then likely be able to discharge home to follow up with Oncology as an outpatient in the next 2 to 3 days. REVIEW OF SYSTEMS: Twelve point review of system negative except as per interval history. LABS: INR 0.99. Sodium 138, potassium 3.4, glucose 127, bilirubin 1.19, alkaline phosphatase 186, albumin 2.9, prealbumin 10.4. Complete metabolic panel otherwise unremarkable. PHYSICAL EXAMINATION: General: No acute distress. Vital Signs: T-max 98.2 , pulse 98, respirations 18, blood pressure 145/68, O2 sat 92% on room air. HEENT: Normocephalic, atraumatic. Moist mucous membranes. No cervical adenopathy. Cardiovascular: Regular rate and rhythm. No murmurs, rubs or gallops. Pulmonary: Clear to auscultation bilaterally. No wheezing, rales, or rhonchi. Abdomen: Soft, nontender, nondistended. Bowel sounds positive. Extremities: Peripheral pulses intact. No clubbing, cyanosis or edema. Left groin site bandaged. No further drains in place. No discharge. Neurologic: Cranial nerves 2-12 grossly intact. Remains globally weak, slightly more in the left lower extremity, but no new focal deficits. Psychiatric: Normal mood and affect. Awake, alert, oriented x 3. Skin: No new rashes or lesions noted. ASSESSMENT AND PLAN: 1. Acute infected left iliopsoas retroperitoneal hematoma: Status post surgical drainage. Had to have surgical drains in place for quite a while, but these have all been removed at this point. Still a bit of open wound which is currently bandaged but infection appears to be significantly improved. Hopefully, we may be able to transition to p.o. antibiotics soon. 2. Acute hypoxic failure: Multifactorial with recent pulmonary embolus and underlying COPD. Now improved. The patient satting well on room air. 3. Acute left lower ext DVT, right-sided PE as above. We were holding Eliquis overnight for liver biopsy, but since this was unable to be done, we will restart Lovenox. 4. Right lower lobe pneumonia, recently on vancomycin and Zosyn. Currently on cefepime. Likely discharge on Levaquin at discharge. Significantly improved. 5. Encephalopathy, now resolved. 6. Liver and lung masses. The patient with extensive smoking history, strongly suspect malignancy. Had plan for liver biopsy, but this was unable to be obtained. Will likely need a PET scan as an outpatient unless the patient elects to go hospice. 7. Peripheral arterial disease. Has had previous bypass on the left complicating patient's ability to ambulate. Given extensive DVT as well. Swelling is much improved ; however, no acute intervention at this time. 8. Urinary retention, now resolved. 9. Protein calorie malnutrition. On marinol but with little improvement in appetite. Discussed the need for p.o. intake with patient as above. Nursing did report somewhat improved intake with lunch today after discussion with patient. Will monitor. If patient continues to have very poor PO intake then options will be limited, as patient refuses any consideration of a PEG. 10. Likely approaching maximum benefit of hospitalization. Awaiting final surgery recommendations and discussion with hospice. Plan for either discharge to rehab with outpatient oncology follow-up or discharge home with hospice depending on patient's decisions. [facility]
[2018-07-19] MEDS: PROTONIX IV SCH (16:06)
[2018-07-19] MEDS: CYMBALTA PO SCH (21:02)
[2018-07-19] MEDS: SEROQUEL PO SCH (21:03)
[2018-07-19] MEDS: LOVENOX SUBQ SCH (21:03)
[2018-07-20] MEDS: DUONEB (A & A) INH SCH ×4 (03:13→15:35)
[2018-07-20] MEDS: MAXIPIME 1 GM in NS 50 ML IV SCH ×2 (05:00→17:29)
--- NOTE | 2018-07-20 05:24 | PULMONOLOGY PROGRESS NOTE ---
DATE: 07/19/2018 SUBJECTIVE: Patient is awake alert and conversant. He has a slightly flat affect and is depressed. After inability to biopsy liver today. OBJECTIVE: Vital signs: BP 149/76, heart rate 98, respiratory rate 19, and oxygen saturation 93% on room air. He has been afebrile for the last 24 hours. HEENT: Pupils are equal and reactive. Oropharynx is clear. Neck: Supple. Chest: Reveals faint crackles in the lung bases. Cardiac: S1, S2. Abdomen: Soft and without hepatosplenomegaly. Left groin: Is bandaged. Extremities: Reveal chronic vascular disease which are unchanged. LABORATORIES: Sodium 138, potassium 3.4, chloride 100, bicarbonate 28, BUN 12, creatinine 0.8. CT- guided biopsy of the liver cancelled because the biopsy could not be performed in the dome of the liver without going through the lung or the mediastinum and therefore, the biopsy was canceled. Consolidation at the right base has significantly improved. IMPRESSION: A 68-year-old with 1. Pneumonia. 2. Pulmonary emboli status post inferior vena cava filter placement. 3. Mass in the left upper lobe with 2 worrisome masses in the liver. Unfortunately, these but could not be biopsied as outlined above. It is possible to biopsy the left upper lobe, which may get a diagnosis of lung cancer. However, this could not be resected without knowing what is in the liver. It is not clear whether this might be approached with a thorascopic biopsy, but it does not appear to be on the edge of the liver making this biopsy difficult as well. It is not clear the correct path to take at this juncture. RECOMMENDATIONS: 1. Encourage p.o. intake. 2. Complete antibiotics at the discretion of Dr. Bartlett. 3. Ask Dr. Bartlett to consider possible laparoscopic biopsy, but this would represent another surgery for a chronically malnourished patient, who has a poor performance status. cc: Basilio Bloom MD
[2018-07-20 07:57] VITALS: BP 123/62
[2018-07-20] MEDS: ANORO ELLIPTA 62.5-25 MCG INH INH SCH (08:36)
[2018-07-20] MEDS: LOVENOX SUBQ SCH (12:08)
[2018-07-20] MEDS: NORCO-10 PO PRN ×2 (12:08→16:14)
[2018-07-20] MEDS: MARINOL PO SCH (12:10)
[2018-07-20] MEDS: FLOMAX PO SCH (12:10)
[2018-07-20] MEDS: NIASPAN PO SCH (12:10)
[2018-07-20] MEDS: CLINIMIX E 4.25%-5% SOLUTION 1,000 ML IV SCH (12:11)
--- NOTE | 2018-07-20 14:27 | HEMO/ONC PROGRESS NOTE ---
DATE: 07/20/2018 SUBJECTIVE: Mr. Mercado is lying in his hospital bed with a couple of family members at bedside. He is in no acute distress. OBJECTIVE: Vital signs: Temperature is 98.1, heart rate 107, respirations 14, blood pressure 123/62, O2 saturation is 94% on room air. Cardiovascular: Tachycardia noted but regular rhythm. Respiratory: Chest is clear with normal respiratory effort. Gastrointestinal: Abdomen is soft, nontender and nondistended with normoactive bowel sounds. Musculoskeletal: No bony abnormalities noted. DIAGNOSTIC DATA: No new labs for today. ASSESSMENT AND PLAN: 1. Liver and lung masses. The patient is not going to be able to have a liver biopsy, as the lesion is not amenable to CT-guided biopsy at this time. Dr. Bloom has commented that a lung biopsy may not be amenable, either. There is a possibility that they could proceed with a biopsy thoracoscopically. Dr. Bloom comments that he is going to discuss with Dr. Bartlett. Dr. Rogers will also discuss and look at scans. Reviewed plan with the patient, and he verbalized that he was aware. We will follow up on the pathology once it becomes available after the biopsy can be completed. 2. Pneumonia. The patient will continue IV antibiotics. 3. Pulmonary emboli, status post IVC filter placement. The patient is now on therapeutic Lovenox at 1 mg/kg q.12 hours. We recommend that he continue anticoagulation. Of course, you would hold the antibiotics whenever a biopsy is performed. We are going to sign off for the weekend, but we will be available as needed. We will resume regular followup on 07/23/2018. Dictated by ZAHRA Umaña for Shannan Rogers MD cc: Shannan Rogers MD I have seen and examined the patient and the above note reflects my history, physical exam and assessment and plan. Shannan HERNANDEZ
[2018-07-20] MEDS: MIRALAX PO SCH (17:29)
--- NOTE | 2018-07-21 03:49 | GENERAL SURGERY PROGRESS NOTE ---
DATE: 07/20/2018 TIME: 5:38 p.m. SUBJECTIVE: Mr. Mercado was not able to undergo the CT-guided biopsy of the liver because of the position of the mass in the dome of the liver. He subsequently has decided to go home on hospice so he is being discharged today. His left groin wound looks fine, I removed the stitches today. His is to contact me if he has any concern about his wound. In view of his choosing hospice we probably will not pursue any further revascularization to his left leg at this time. cc: Romulo Bartlett MD
--- NOTE | 2018-07-21 15:22 | DISCHARGE SUMMARY ---
ADMISSION DATE: 06/30/2018 DISCHARGE DATE: 07/20/2018 CONSULTANTS: 1. Heme/Onc, 2. Pulmonology. 3. General Surgery. PROCEDURES: Surgical drainage of left ilial psoas, iliopsoas and groin hematoma and abscess. IMAGIN. Initial abdomen and pelvis CT large mixed density area in the left thigh extending into the iliopsoas favored to represent hematoma. Occlusion of the left iliac vein and external iliac artery. Nonspecific hypodense lesions in the liver. Poorly enhancing area in the mid left kidney as well as scarring in the right kidney. Small pleural effusions. 2. Brain MRI unremarkable. 3. CT chest with emphysema, a spiculated mass in left upper lobe near the apex, right lower lobe pneumonia, heterogenous mass in the dome of the liver and a smaller low- density nodule inferiorly in the right hepatic lobe. These were highly suspicious for neoplasm. 4. Repeat chest CT with stable masses and improvement of right lower lobe pneumonia. DISCHARGE DIAGNOSES: 1. Infected iliopsoas hematoma. 2. Chronic obstructive pulmonary disease. 3. Recent pulmonary embolism. 4. Pneumonia. 5. Liver and lung masses, favor metastatic malignancy. 6. Peripheral arterial disease. HOSPITAL COURSE: The patient presented initially with shortness of breath and left groin pain. He had been recently discharged from [facility] after extended admission with DVT. An IVC filter placed. He was found to have a left iliopsoas/groin hematoma, which was later found to be infected. He underwent surgical drainage. He required surgical drains for several days postop, but these were eventually removed and his pain was also much improved. His procedure was 06/23/[address] Bartlett. He was also noted to have pneumonia just after admission, which was the likely cause of his dyspnea on admission and mild hypoxia. He was placed on vancomycin and Zosyn for both the abscess and the pneumonia. He was later narrowed to just a cefepime. Urine culture grew Enterobacter resistant only to cefazolin and Macrobid, but abscess and blood cultures remained no growth. During treatment of these infections, he was instantly noted to have liver and lung masses highly suspicious for malignancy. CT-guided biopsy of the liver was attempted, but due to its placement near the diaphragm, no safe angle was identified. The patient became somewhat impatient with the whole process and eventually elected to go home with hospice after extensive discussion. Part of the discussion was that his appetite was very poor despite therapy with Marinol. He denied any nausea or early satiety that could potentially be addressed with other therapies. He states that he simply had no appetite. I discussed options with patient, including feeding tube/PEG tube but he refused these options. I discussed that further biopsy of some kind will be necessary to obtain a definitive diagnosis to accurately discuss treatment options, but after subsequent discussion with his , he again expressed desire to go home with hospice. This was arranged and the patient was discharged home with hospice care. DISCHARGE VITALS: Temperature 98.1, pulse 104, respirations 14, blood pressure 123/62, O2 sats 94% on room air. DISCHARGE PHYSICAL EXAMINATION: General: No acute distress. Vitals: As above. HEENT: Normocephalic, atraumatic. Moist mucous membranes. No cervical adenopathy. Cardiovascular: Regular rate and rhythm at the time of my exam. No murmurs, rubs or gallops. Pulmonary: Clear to auscultation bilaterally. No wheezing, rales or rhonchi. Abdomen: Soft, nontender, nondistended. Bowel sounds positive. Left groin bandaged. Bandage clean, dry , intact. No surrounding erythema, fluctuance, induration or other signs of active infection. Extremities: Peripheral pulses intact. No clubbing or cyanosis. Neurologic: Cranial nerves 2-12 grossly intact. Remains globally weak slightly more in the left lower extremity, but no new focal deficits. Psychiatric: Normal mood and affect. Awake, alert, oriented x 3. Skin: No new rashes or lesions noted. DISCHARGE DIET: Regular, as tolerated. DISCHARGE MEDICATIONS: ProAir inhaler as needed, Eliquis 5 mg p.o. daily, Flexeril 10 mg p.o. as needed, Cymbalta 60 mg p.o. b.i.d., [place] 10 q.4 hours p.r.n., omeprazole 20 mg daily, Anoro Ellipta inhaled daily, Augmentin XR 2 g p.o. b.i.d. x 7 days, Tylenol 650 mg p.o. q.6 hours as needed, not to exceed 4 g total of Tylenol a day, albuterol ipratropium, DuoNebs q.4 hours p.r.n. nebulizer solution, Marinol 2.5 mg p.o. b.i.d., Seroquel 50 mg p.o. at bedtime p.r.n., Ambien 5 mg p.o. at bedtime. FOLLOWUP AND PLAN: The patient is discharging home to hospice care. Continue course of antibiotics to finish treatment of pneumonia and iliopsoas abscess. Encourage p.o. intake as much as possible. TIME SPENT: Greater than 30 minutes spent arranging discharge and counseling patient. [facility]
== END 2018-07-20 18:05 | disposition hospice, home (50) | DRG 500 ==
LOC: ED 13:10 → SUATTDRO 19:29 → ICU 19:29 → 4N 07-05 00:04
PROVIDERS: ATTEND Internal Medicine
CPT/HCPCS: 51702; 70450; 70553; 71010; 71045; 71250; 74177; 80048; 80053; 80074; 80202; 81001; 82150; 82378; 82805; 82948; 83615; 83690; 83735; 83880; 84100; 84132; 84134; 84484; 85025; 85610; 85730; 86850; 86900; 86901; 87040; 87070; 87077; 87088; 87186; 87205; 88304; 89220; 93005; 93010; 93970; 94640; 94761; 95816; 96365; 96375; 97110; 97162; 97530; 99285; A9270; A9579; C9113; J0692; J0696; J1170; J1644; J1650; J1940; J2060; J2370; J2405; J2543; J3370; J3480; J7040; P9047; Q9967; S0164; XXXXX